=== PATIENT | female | born 1950 | race Caucasian/White ===

== ENCOUNTER 2016-12-18 11:20 | Inpatient (IN) | payer OTHER, MEDICARE ==
[~2016-12-18] VITALS: Ht 157.5 cm; Wt 88.2 kg
[2016-12-18] VITALS (10 sets, daily range): BP systolic 139–197; BP diastolic 72–111; PULSE 68–81; TEMP 36.6–36.8; O2SAT 92–96; Ht 157.5 cm; Wt 88.2 kg
[2016-12-18] MEDS ORDERED: SODIUM CHLORIDE 0.9% 1000ML 1,000 ML IV SCH (14:20)
[2016-12-18] MEDS ORDERED: PROMETHAZINE HCL INJ 12.5 MG in SODIUM CHLORIDE 0.9% 50ML 50 ML IV PRN (14:30)
[2016-12-18] MEDS ORDERED: ONDANSETRON INJ 2 MG/ML 2 ML VIAL IV PRN (14:30)
[2016-12-18] MEDS ORDERED: LORAZEPAM 1 MG TAB PO PRN (14:30)
[2016-12-18] MEDS ORDERED: ACETAMINOPHEN 325 MG TAB PO PRN (14:30)
[2016-12-18] MEDS ORDERED: NALOXONE HCL 0.4 MG/1 ML VIAL/CARP IV PRN (14:30)
[2016-12-18] MEDS ORDERED: OXYCODONE/ACETAMINOPHEN 5-325 TAB PO PRN (14:30)
[2016-12-18] MEDS ORDERED: LORAZEPAM INJ 1 MG in SYRINGE 0 ML IV PRN (14:30)
[2016-12-18 15:07] LABS: BASO % 0.3 %; BASO ABS # 0.03 K/uL (0-0.2); COMPLETE YES; EOS % 2.9 %; HEMATOCRIT 37.7 % (37-47); IG% 0.4 %; LYMPH % 26.6 %; LYMPH ABS # 2.44 K/uL (1.2-3.4); MEAN CELL VOLUME 90.6 fL (80-100); MEAN CORPUSCULAR HEMOGLOBIN 29.8 pg (25-34); MEAN CORPUSCULAR HGB CONC 32.9 g/dl (32-36); MEAN PLATELET VOLUME 10.4 fL (7.4-10.4); MONO % 9.2 %; NEUT % 60.6 %; PLATELET COUNT 197 K/uL (130-400); RED BLOOD COUNT 4.16 M/uL (4.2-5.4); WHITE BLOOD COUNT 9.16 K/uL (4.8-10.8)
[2016-12-18] MEDS ORDERED: IV FLUIDS COMPLETED PRN (15:15)
[2016-12-18 15:58] LABS: BUN/CREATININE RATIO 16.6 (10-20); CREATININE 1.2 mg/dl (0.60-1.20)
--- NOTE | 2016-12-18 16:01 | DIAGNOSTIC IMAGING REPORT ---
ULTRASOUND BILATERAL LOWER EXTREMITY VENOUS CLINICAL HISTORY: Immobilized patient. COMPARISON STUDY: No priors. TECHNIQUE: Real-time, grayscale, and color Doppler sonography of the deep veins of the right and left lower extremity was performed from the inguinal crease to the calf. Compression and augmentation were utilized. FINDINGS: There is no sonographic evidence of deep venous thrombosis identified in the right or left lower extremity. The common femoral, superficial femoral, and popliteal veins are patent and normally compressible bilaterally. The greater saphenous vein and the profunda femoris vein at the junction with the common femoral vein are clear in both legs. The visualized calf veins are patent bilaterally. IMPRESSION: There is no sonographic evidence of deep venous thrombosis identified in the right or left lower extremity. Electronically signed by: Timothy Meng M.D. 12/18/2016 3:59 PM Dictated Date/Time: 12/18/2016 3:59 PM
--- NOTE | 2016-12-18 16:04 | DIAGNOSTIC IMAGING REPORT ---
CHEST 2 VIEWS ROUTINE CLINICAL HISTORY: preop COMPARISON STUDY: No previous studies for comparison. FINDINGS: Prior median sternotomy. Fibrotic placement. Lungs are clear. IMPRESSION: No acute process. Electronically signed by: Jasbir Adams M.D. 12/18/2016 4:02 PM Dictated Date/Time: 12/18/2016 3:58 PM
[2016-12-18] MEDS: MoRPHine SULFATE 1 MG/ML 50 ML PCA CASS IV PRN ×2 (16:47→22:59)
[2016-12-18 17:07] LABS: POTASSIUM 3.6 mmol/L (3.5-5.1)
[2016-12-18] MEDS ORDERED: APR/25 PO (21:30)
[2016-12-18] MEDS ORDERED: PRED-301 PO (21:34)
[2016-12-18] MEDS ORDERED: SIMV20TA2 PO (21:34)
[2016-12-18] MEDS ORDERED: DILT120C51 PO (21:34)
[2016-12-18] MEDS ORDERED: SERT-234 PO (21:34)
[2016-12-18] MEDS ORDERED: CRG25 PO (21:34)
[2016-12-18] MEDS ORDERED: BUPR150T7 PO (21:34)
[2016-12-18] MEDS ORDERED: GABA1CAP4 PO (21:34)
[2016-12-18] MEDS ORDERED: LSN20 PO (21:35)
[2016-12-18] MEDS ORDERED: SIMVASTATIN 20 MG TAB PO ONE (21:36)
[2016-12-18] MEDS ORDERED: CARVEDILOL 25 MG TAB PO ONE (21:36)
[2016-12-18] MEDS ORDERED: BuPROPion SR 150 MG TABCR PO ONE (21:36)
[2016-12-18] MEDS ORDERED: GABAPENTIN 300 MG CAP PO ONE (21:36)
--- NOTE | 2016-12-18 21:38 | Medical Consult ---
Consultation Date of Consultation: Dec 18, 2016 . Attending Physician: Delta Kruger M.D. . Reason for Consultation: medical management . History of Present Illness 66 YO female followed by Dr. Jackson for primary care. History of hypertension, adrenal insufficiency, and other problems noted below. History of intolerance to anesthesia, but patient does not know the specific agents that she does not tolerate well. Experiencing severe back pain due to HNP. Admitted to Ortho Service for further management. She has been feeling well expect for her low back pain. No fever. No chest pain, cough, SOB. No nausea, vomiting, diarrhea, melena, hematochezia. No urinary symptoms. No unusual bruising or bleeding. . Family History FATHER Myocardial infarction MOTHER Lung cancer Social History Smoking Status: Never Smoker Alcohol Use: none Allergies Coded Allergies: No Known Allergies (Unverified , 12/18/16) Current Inpatient Medications Reported Home Medications Medications Dose Route/Sig Max Daily Dose Days Date Category Lisinopril 20 Mg Tab 20 Mg PO DAILY 12/18/16 Reported Prednisone 5 Mg Tab 5 Mg PO DAILY 12/18/16 Reported Zocor (Simvastatin) 20 Mg Tab 20 Mg PO HS 12/18/16 Reported Cardizem Cd (Diltiazem Hcl Coated Beads) 120 Mg Cap 120 Mg PO DAILY 12/18/16 Reported Zoloft (Sertraline HCl) 100 Mg Tab 100 Mg PO DAILY 12/18/16 Reported Carvedilol 25 Mg Tab 25 Mg PO BID 12/18/16 Reported Wellbutrin Sr (Bupropion Hcl) 150 Mg Tab 150 Mg PO BID 12/18/16 Reported Gabapentin 300 Mg Cap 300 Mg PO TID 12/18/16 Reported Hydralazine HCl 25 Mg Tab 25 Mg PO BID 12/18/16 Reported Current Inpatient Medications Medications (Trade) Dose Ordered Sig/Rory Route Start Time Stop Time Status Last Admin Dose Admin Acetaminophen (Tylenol Tab) 650 mg Q6H PRN PO 12/18/16 14:30 01/17/17 14:29 Docusate Sodium 100 mg 100 mg BID PO 12/18/16 21:00 01/17/17 20:59 Dexamethasone Sodium Phosphate 8 mg/Syringe 2 ml @ 1 mls/min Q8 IV 12/18/16 22:00 12/19/16 14:01 Promethazine HCl/ Sodium Chloride (Phenergan Inj/ Nss 50ml) 50.5 ml @ 202 mls/hr Q6H PRN IV 12/18/16 14:30 01/17/17 14:29 Ondansetron HCl (Zofran Inj) 4 mg Q6H PRN IV 12/18/16 14:30 01/17/17 14:29 Lorazepam 1 mg 1 mg Q6H PRN PO 12/18/16 14:30 01/17/17 14:29 Lorazepam/Syringe (Ativan Inj/ Syringe) 0.5 ml @ 1 mls/min Q6H PRN IV 12/18/16 14:30 01/17/17 14:29 Oxycodone/ Acetaminophen (Percocet 5-325mg Tab) Moderate to Severe patrizia... Q4H PRN PO 12/18/16 14:30 01/01/17 14:29 Future Hold Naloxone HCl (Narcan Inj) 0.1 mg Q5M PRN IV 12/18/16 14:30 01/17/17 14:29 Morphine Sulfate 50 mg 50 mg PRN PRN IV 12/18/16 14:30 01/01/17 14:29 12/18/16 16:47 50 MG Sodium Chloride (Nss 1000ml) 1,000 ml @ 15 mls/hr Q24H IV 12/18/16 14:20 01/17/17 14:19 12/18/16 14:44 15 MLS/HR Miscellaneous (Iv Fluids Completed) 1 ea PRN PRN N/A 12/18/16 15:15 12/18/17 15:14 Review of Systems As noted above in HPI. . Physical Exam Date Time Temp Pulse Resp B/P Pulse Ox O2 Delivery O2 Flow Rate FiO2 12/18/16 21:05 36.7 77 16 189/81 93 Room Air 12/18/16 19:55 36.8 76 16 190/77 94 Room Air 12/18/16 19:00 36.8 68 16 165/86 92 Room Air 12/18/16 17:48 36.6 74 16 169/91 95 Room Air 12/18/16 16:07 36.7 79 18 197/78 96 Room Air 12/18/16 16:00 Room Air 12/18/16 13:20 92 Room Air 12/18/16 12:40 36.6 69 16 139/72 92 Room Air General Appearance: WD/WN, no apparent distress Head: normocephalic, atraumatic Eyes: normal inspection, PERRL, EOMI, sclerae normal ENT: normal ENT inspection, hearing grossly normal, pharynx normal Neck: supple, no adenopathy, thyroid normal, no JVD, trachea midline Respiratory/Chest: lungs clear, no respiratory distress, no accessory muscle use Cardiovascular: regular rate, rhythm, no edema, no gallop, no JVD, + systolic murmur (II/ sys murmur at base) Abdomen/GI: normal bowel sounds, non tender, soft, no organomegaly Extremities/Musculoskelatal: normal inspection, no calf tenderness, no pedal edema, + pertinent finding (TEDS and SCD's applied) 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: 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 (PERRL, EOMI), no motor/sensory deficits (motor testing grossly intact), alert, normal mood/affect, oriented x 3 Skin: normal color, warm/dry, no rash Lymphatic: no adenopathy Laboratory Results Last 24 Hours Test 12/18/16 14:50 White Blood Count 9.16 K/uL Red Blood Count 4.16 M/uL Hemoglobin 12.4 g/dL Hematocrit 37.7 % Mean Corpuscular Volume 90.6 fL Mean Corpuscular Hemoglobin 29.8 pg Mean Corpuscular Hemoglobin Concent 32.9 g/dl Platelet Count 197 K/uL Mean Platelet Volume 10.4 fL Neutrophils (%) (Auto) 60.6 % Lymphocytes (%) (Auto) 26.6 % Monocytes (%) (Auto) 9.2 % Eosinophils (%) (Auto) 2.9 % Basophils (%) (Auto) 0.3 % Neutrophils # (Auto) 5.54 K/uL Lymphocytes # (Auto) 2.44 K/uL Monocytes # (Auto) 0.84 K/uL Eosinophils # (Auto) 0.27 K/uL Basophils # (Auto) 0.03 K/uL RDW Standard Deviation 48.3 fL RDW Coefficient of Variation 14.7 % Immature Granulocyte % (Auto) 0.4 % Immature Granulocyte # (Auto) 0.04 K/uL Sodium Level 148 mmol/L Potassium Level 3.6 mmol/L Chloride Level 111 mmol/L Carbon Dioxide Level 27 mmol/L Anion Gap 10.0 mmol/L Blood Urea Nitrogen 20 mg/dl Creatinine 1.20 mg/dl Est Creatinine Clear Calc Drug Dose 47.6 ml/min Estimated GFR () 54.5 Estimated GFR (Non- 47.1 BUN/Creatinine Ratio 16.6 Random Glucose 93 mg/dl Calcium Level 9.0 mg/dl Total Bilirubin 0.2 mg/dl Aspartate Amino Transf (AST/SGOT) 16 U/L Alanine Aminotransferase (ALT/SGPT) 19 U/L Alkaline Phosphatase 55 U/L Total Protein 6.5 gm/dl Albumin 3.3 gm/dl Globulin 3.2 gm/dl Albumin/Globulin Ratio 1.0 Hepatitis C Antibody Screen NEG Assessment & Plan BACK PAIN Management per Ortho. HYPERTENSION Continue carvedilol, lisinopril, hydralazine. DYSLIPIDEMIA Continue simvastatin. ADRENAL INSUFFICIENCY On prednisone 5 mg daily. Apparently she was on high dose steroids for some time due to suspected inflammatory bowel disease. Has been unable to wean off prednisone. Continue prednisone 5 mg daily. Should have IV hydrocortisone preoperatively and immediately postoperatively. VTE PROPHYLAXIS Per Ortho protocol. Thank you for this consultation. We will follow the patient with you during their hospital stay. Dr. Mesa will be rounding over the weekend. You can reach a member of the [facility] Hospitalist Team 24/05 via pager @ [phone]. You can reach me via cell @ [phone]. .
[2016-12-18] MEDS: DOCUSATE SODIUM 100 MG CAP PO SCH (21:52)
[2016-12-18] MEDS: DEXAMETHASONE INJ 8 MG in SYRINGE 0 ML IV SCH (21:52)
[2016-12-19] VITALS (7 sets, daily range): BP systolic 140–193; BP diastolic 77–94; PULSE 78–91; TEMP 36.5–36.8; O2SAT 91–94
[2016-12-19] MEDS: DEXAMETHASONE INJ 8 MG in SYRINGE 0 ML IV SCH ×2 (06:14→12:56)
[2016-12-19] MEDS: MoRPHine SULFATE 1 MG/ML 50 ML PCA CASS IV PRN (06:51)
[2016-12-19] MEDS: DOCUSATE SODIUM 100 MG CAP PO SCH ×2 (08:03→21:56)
[2016-12-19] MEDS: SERTRALINE HCL 100 MG TAB PO SCH (08:04)
[2016-12-19] MEDS: BuPROPion SR 150 MG TABCR PO SCH ×2 (08:04→21:56)
[2016-12-19] MEDS: DILTIAZEM HCL 120 MG CAPCR PO SCH (08:05)
[2016-12-19] MEDS: CARVEDILOL 25 MG TAB PO SCH ×2 (08:05→21:56)
[2016-12-19] MEDS: GABAPENTIN 300 MG CAP PO SCH ×3 (08:05→21:57)
[2016-12-19] MEDS: LISINOPRIL 20 MG TAB PO SCH (08:05)
--- NOTE | 2016-12-19 10:36 | Anesthesiology Progress Note ---
Pre-OP Anesthesia Assessment Date of Note Dec 19, 2016. Review patient information reviewed, chart reviewed, labs reviewed, acceptable for surgery Notes 66yo female scheduled for L4 - L5 decompression, PSF. PMH is significant for obesity, HTN, aortic valve replacement (porcine), hyperlipidemia,, anxiety, depression. Pt reports occurrence of severe PONV yrs ago but subsequent surgeries without post op complications. 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 GA discussed. She expressed understanding and signed informed consent.
[2016-12-19 11:10] LABS: URINE APPEARANCE CLOUDY (CLEAR); URINE BILIRUBIN NEG (NEG); URINE COLOR YELLOW; URINE EPITHELIAL CELL AUTO >30 /lpf (0-5); URINE NITRITE NEG (NEG); URINE SPECIFIC GRAVITY 1.019 (1.000-1.030); UROBILINOGEN NEG (NEG)
[2016-12-19 11:20] LABS: MANUAL MICROSCOPIC REQUIRED? NO; REVIEW REQ? YES
[2016-12-19] MEDS ORDERED: KETOROLAC TROMETHAMINE 15 MG/ML VIAL IM PRN (12:15)
[2016-12-19] MEDS ORDERED: NALOXONE HCL 0.4 MG/1 ML VIAL/CARP IV PRN (12:15)
--- NOTE | 2016-12-19 12:27 | HISTORY & PHYSICAL EXAMINATION ---
DATE OF ADMISSION: 12/18/2016 HISTORY OF PRESENT ILLNESS: This is a 66-year-old female who presented to the office with severe left lower extremity radiculopathy that progressed. She has been having symptoms for months being treated as an outpatient but over the past week, her pain became intolerable, she was essentially bedridden. She came to the office in a wheelchair. She has predominant left lower extremity symptoms. Outside imaging demonstrated multilevel spondylosis of the lumbar spine with disc degeneration, osteophytes and spondylolisthesis that was mobile of L4 and L5. MRI showed multilevel degenerative change in the mid lumbar spine and spinal stenosis L4-L5 with spondylolisthesis and a large left L4-L5 disc herniation with extruded fragment tracking up the pedicle of L4. She was admitted for pain control. PAST MEDICAL HISTORY: Hypertension, porcine aortic valve replacement, currently on no anticoagulation, hyperlipidemia, anxiety, depression, obesity. SOCIAL HISTORY: The patient is a nonsmoker. 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 ALLERGIES: None. MEDICATIONS: Medication list was reviewed per the EMR. REVIEW OF SYSTEMS: The patient denies chest pain, shortness of breath with activity, dyspnea on exertion, abdominal pain or incontinence. PHYSICAL EXAMINATION: MUSCULOSKELETAL: The patient is comfortable lying supine, severe pain with attempted movement of the left leg. Positive straight leg raise on the left. Less pronounced on the right. She has sensory disturbance in L5 and L4 distribution on the left with weakness in dorsiflexion on the left. She has good strength, sensation in the right lower extremity. She has absent patellar reflex on the left. She has nontender hip range of motion with log roll. She has palpable distal pulses. HEART: She has a regular rate and rhythm. LUNGS: Clear to auscultation with no respiratory distress. ABDOMEN: Soft, nontender. X-rays and MRI reviewed as above. ASSESSMENT: The patient is admitted for pain control due to severe radiculopathy. Pending medical and cardiac clearance anticipate proceeding with lumbar decompression and fusion procedure addressing the herniations and stenosis, instability L4-L5 with possible inclusion of L3. The patient was agreeable.
[2016-12-19] MEDS: SODIUM CHLORIDE 0.9% 1000ML 1,000 ML IV SCH (12:55)
[2016-12-19] MEDS: HYDROmorphone HCL 0.5MG/ML 50 ML CASSETTE IV PRN ×3 (13:01→22:50)
[2016-12-19] MEDS: SIMVASTATIN 20 MG TAB PO SCH (21:57)
--- NOTE | 2016-12-19 22:12 | Progress Note ---
Internal Med Progress Note Date of Service: Dec 19, 2016. Provider Documentation: SUBJECTIVE: using Morphine GENERAL HELPER pump has ongoing back pain , worse with minimum movement no complain of chest pain or SOB OBJECTIVE: Vital Signs-as noted below Exam: General-no sign of distress Eyes-sclera non icteric ENT-nad Neck-no thyromegaly Lungs-CTA ,no wheeze or rales Heart-regular S1/S2 Abdomen-soft ,non tender Extremities-no lower ext edema Neuro-no focal deficit Lab data as noted below. ASSESSMENT & PLAN: INTRACTABLE BACK PAIN due to herniated disc in lumber spine Ortho following plan for spinal decompression surgery on Wednesday HYPERTENSION BP stable Continue carvedilol, lisinopril, hydralazine. VALVULAR HEART DISEASE : s/p Aortic valve replacement -porcine valve follows with Cardiology at [place] no evidence of vol overload or cardiac compromise pt denies of any SOB , PRYOR activity was limited recently due to severe back pain DYSLIPIDEMIA Continue simvastatin. ADRENAL INSUFFICIENCY On prednisone 5 mg daily. surgical risk : pt is at moderate to low risk for tahir and post operative cardiac complication - CHF /Afib arrhythmia 12 lead EKG shows T wave flattening on lateral leads no prior EKG to compare no cardiac symptom of chest pain /SOB Cxray no active cardiopulmonary disease patient can proceed for elective spinal decompression surgery ( moderate risk ) no further cardiac studied will reduce /optimize risk pt should be given AM dose of Coreg with sips of water in morning of surgery VTE PROPHYLAXIS Per Ortho protocol. DISPOSITION per Primary team Vital Signs: Date Time Temp Pulse Resp B/P Pulse Ox O2 Delivery O2 Flow Rate FiO2 12/20/16 19:14 36.8 78 18 173/83 92 Room Air 12/20/16 16:00 Room Air 12/20/16 15:10 36.6 84 16 156/89 91 Room Air 12/20/16 07:45 91 Room Air 12/20/16 07:40 36.6 77 16 115/63 94 Nasal Cannula 2.0 12/20/16 03:28 175/85 12/20/16 03:26 36.9 86 16 177/90 94 Nasal Cannula 2.0 12/19/16 23:35 Nasal Cannula 2.0 12/19/16 23:20 36.6 87 14 149/79 93 Nasal Cannula 2.0 12/19/16 20:00 36.8 89 16 164/79 94 Nasal Cannula 2.0 2/18/17 20:00 94 Nasal Cannula 2.0 Lab Results:
[2016-12-20] VITALS (8 sets, daily range): BP systolic 115–177; BP diastolic 63–90; PULSE 69–86; TEMP 36.6–36.9; O2SAT 91–94
[2016-12-20] MEDS: HYDROmorphone HCL 0.5MG/ML 50 ML CASSETTE IV PRN ×2 (06:54→16:55)
[2016-12-20] MEDS: LISINOPRIL 20 MG TAB PO SCH (07:47)
[2016-12-20] MEDS: BuPROPion SR 150 MG TABCR PO SCH ×2 (07:48→20:40)
[2016-12-20] MEDS: CARVEDILOL 25 MG TAB PO SCH ×2 (07:48→20:40)
[2016-12-20] MEDS: DILTIAZEM HCL 120 MG CAPCR PO SCH (07:48)
[2016-12-20] MEDS: DOCUSATE SODIUM 100 MG CAP PO SCH ×2 (07:48→20:40)
[2016-12-20] MEDS: GABAPENTIN 300 MG CAP PO SCH ×3 (07:48→20:40)
[2016-12-20] MEDS: SERTRALINE HCL 100 MG TAB PO SCH (07:49)
--- NOTE | 2016-12-20 11:14 | Orthopedic Progress Note ---
Orthopedic Progress Note Date of Service Dec 20, 2016. 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 Objective N/V intact, A&O x3, toes mobile Date Time Temp Pulse Resp B/P Pulse Ox O2 Delivery O2 Flow Rate FiO2 12/20/16 07:45 91 Room Air 12/20/16 07:40 36.6 77 16 115/63 94 Nasal Cannula 2.0 12/20/16 03:28 175/85 12/20/16 03:26 36.9 86 16 177/90 94 Nasal Cannula 2.0 12/19/16 23:35 Nasal Cannula 2.0 12/19/16 23:20 36.6 87 14 149/79 93 Nasal Cannula 2.0 12/19/16 20:00 36.8 89 16 164/79 94 Nasal Cannula 2.0 12/19/16 20:00 94 Nasal Cannula 2.0 12/19/16 15:13 36.8 90 18 145/86 93 Room Air 12/19/16 13:03 168/89 12/19/16 12:17 36.8 91 18 140/77 93 Room Air Assessment & Plan Assessment: severe pain when attempting to move. poor mobility, will give a dose of heparin SC today, OR planned tomorrow
[2016-12-20] MEDS: SODIUM CHLORIDE 0.9% 1000ML 1,000 ML IV SCH (11:53)
[2016-12-20] MEDS: HEPARIN SOD 5000 UNIT/0.5 ML CARP SQ SCH (17:31)
--- NOTE | 2016-12-20 20:03 | Progress Note ---
Internal Med Progress Note Date of Service: Dec 20, 2016. 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 ASSESSMENT & PLAN: INTRACTABLE BACK PAIN due to herniated disc in lumber spine Ortho following plan for spinal decompression surgery tomorrow HYPERTENSION BP stable Continue carvedilol, lisinopril, hydralazine. Coreg should be given with sips of water in AM prior to surgery VALVULAR HEART DISEASE : s/p Aortic valve replacement -porcine valve follows with Cardiology at [place] no evidence of vol overload or cardiac compromise pt denies of any SOB , PRYOR activity was limited recently due to severe back pain DYSLIPIDEMIA Continue simvastatin. ADRENAL INSUFFICIENCY On prednisone 5 mg daily. ordered for TSH and random cortisol level in AM PO Prednisone can be on hold when pt is on IV steroid tahir and post spinal surgery surgical risk : pt is at moderate to low risk for tahir and post operative cardiac complication - CHF /Afib arrhythmia 12 lead EKG shows T wave flattening on lateral leads no prior EKG to compare no cardiac symptom of chest pain /SOB Cxray no active cardiopulmonary disease patient can proceed for elective spinal decompression surgery ( moderate risk ) no further cardiac studied will reduce /optimize risk pt should be given AM dose of Coreg with sips of water in morning of surgery VTE PROPHYLAXIS Per Ortho protocol. DISPOSITION per Primary team Vital Signs: Date Time Temp Pulse Resp B/P Pulse Ox O2 Delivery O2 Flow Rate FiO2 12/20/16 19:14 36.8 78 18 173/83 92 Room Air 12/20/16 16:00 Room Air 12/20/16 15:10 36.6 84 16 156/89 91 Room Air 12/20/16 07:45 91 Room Air 12/20/16 07:40 36.6 77 16 115/63 94 Nasal Cannula 2.0 12/20/16 03:28 175/85 12/20/16 03:26 36.9 86 16 177/90 94 Nasal Cannula 2.0 12/19/16 23:35 Nasal Cannula 2.0 12/19/16 23:20 36.6 87 14 149/79 93 Nasal Cannula 2.0
[2016-12-20] MEDS: SIMVASTATIN 20 MG TAB PO SCH (20:40)
[2016-12-20 22:10] LABS: URINE APPEARANCE CLOUDY (CLEAR); URINE BILIRUBIN NEG (NEG); URINE COLOR YELLOW; URINE NITRITE POS (NEG); URINE SPECIFIC GRAVITY 1.019 (1.000-1.030); UROBILINOGEN NEG (NEG); ZZUR CULT IF INDIC CLEAN CATCH YES
[2016-12-20 22:19] LABS: MANUAL MICROSCOPIC REQUIRED? NO; REVIEW REQ? NO
[2016-12-21] VITALS (17 sets, daily range): BP systolic 120–201; BP diastolic 67–106; PULSE 67–83; TEMP 36.4–36.9; O2SAT 92–97
[2016-12-21] MEDS: CARVEDILOL 25 MG TAB PO SCH ×2 (04:43→23:29)
[2016-12-21] MEDS: HYDROmorphone HCL 0.5MG/ML 50 ML CASSETTE IV PRN ×4 (07:11→22:52)
[2016-12-21 07:25] LABS: HEMATOCRIT 38.2 % (37-47); MEAN CELL VOLUME 91.2 fL (80-100); MEAN CORPUSCULAR HEMOGLOBIN 29.6 pg (25-34); MEAN CORPUSCULAR HGB CONC 32.5 g/dl (32-36); MEAN PLATELET VOLUME 10.1 fL (7.4-10.4); PLATELET COUNT 209 K/uL (130-400); RED BLOOD COUNT 4.19 M/uL (4.2-5.4); WHITE BLOOD COUNT 13.33 K/uL (4.8-10.8)
[2016-12-21 08:06] LABS: BUN/CREATININE RATIO 26.6 (10-20); CREATININE 1.1 mg/dl (0.60-1.20)
[2016-12-21 08:17] LABS: THYROID STIMULATING HORMONE 0.414 uIu/ml (0.300-4.500)
[2016-12-21] MEDS: BuPROPion SR 150 MG TABCR PO SCH ×2 (09:49→21:34)
[2016-12-21] MEDS: DOCUSATE SODIUM 100 MG CAP PO SCH ×2 (09:49→21:34)
[2016-12-21] MEDS: SERTRALINE HCL 100 MG TAB PO SCH (09:50)
[2016-12-21] MEDS: LISINOPRIL 20 MG TAB PO SCH (09:50)
[2016-12-21] MEDS: HEPARIN SOD 5000 UNIT/0.5 ML CARP SQ SCH ×2 (09:50→21:38)
[2016-12-21] MEDS: GABAPENTIN 300 MG CAP PO SCH ×3 (09:51→21:35)
[2016-12-21] MEDS: DILTIAZEM HCL 120 MG CAPCR PO SCH (09:51)
[2016-12-21] MEDS ORDERED: NURSING VERBAL MED ORDER STA (11:51)
[2016-12-21] MEDS ORDERED: BUPIVACAINE/EPINEPHRINE 0.5% MPF 1:200,000 30 ML VIAL ONE (11:55)
[2016-12-21] MEDS ORDERED: THROMBIN FOR SOLN 20000 UNIT KIT ONE (11:55)
[2016-12-21] MEDS ORDERED: THROMBIN 5000 UNITS KIT ONE (11:56)
[2016-12-21] MEDS ORDERED: BACITRACIN 50000 UNIT VIAL ONE (11:56)
[2016-12-21] MEDS ORDERED: HEPARIN SOD (PORCINE) 1000 UNIT/ML 10 ML VIAL ONE (11:56)
[2016-12-21] MEDS ORDERED: HydrALAZINE HCL 20 MG/ML VIAL IV. SCH (12:00)
[2016-12-21] MEDS: SODIUM CHLORIDE 0.9% 1000ML 1,000 ML IV SCH (12:04)
[2016-12-21] MEDS ORDERED: LIDOCAINE HCL 2% 2 ML VIAL (20MG/ML) ONE (12:17)
[2016-12-21] MEDS ORDERED: MIDAZOLAM HCL 1 MG/ML 2ML VIAL ONE (12:17)
[2016-12-21] MEDS ORDERED: FENTANYL CITRATE INJ 50 MCG/1 ML 2 ML VIAL ONE (12:17)
[2016-12-21] MEDS ORDERED: ONDANSETRON INJ 2 MG/ML 2 ML VIAL ONE (12:17)
[2016-12-21] MEDS ORDERED: GLYCOPYRROLATE INJ 0.2 MG/ML VIAL ONE (12:17)
[2016-12-21] MEDS ORDERED: PROPOFOL IV EMULSION 10 MG/ML 20 ML VIAL IV ONE (12:17)
[2016-12-21] MEDS ORDERED: DEXAMETHASONE SOD INJ 4 MG/ML VIAL ONE (12:17)
[2016-12-21] MEDS ORDERED: NEOSTIGMINE METHYLSULFATE 5 MG/5 ML SYR ONE (12:17)
[2016-12-21] MEDS ORDERED: ROCURONIUM BROMIDE 10 MG/ML 5 ML VIAL ONE (12:17)
[2016-12-21] MEDS ORDERED: HYDROCORTISONE SOD SUCCINATE 100 MG/2 ML VIAL ONE ×2 (15:06→18:16)
[2016-12-21] MEDS ORDERED: HydrALAZINE HCL 20 MG/ML VIAL IV. PRN (15:15)
[2016-12-21] MEDS ORDERED: OXYC-57 PO (15:38)
--- NOTE | 2016-12-21 15:39 | Discharge Instructions ---
Discharge Instructions Admission Reason for Admission: Lower Back Pain Discharge Discharge Diagnosis / Problem: Lumbar Stenosis Discharge Goals Goal(s): Decrease discomfort, Improve function, Increase independence Activity Recommendations Activity Limitations: as noted below Lifting Limitations: no more than 5 pounds Exercise/Sports Limitations: until after follow-up appointment May Resume Sexual Activity: after follow-up appointment Shower/Bathe: may shower/bathe in 3 days . Instructions / Follow-Up Instructions / Follow-Up ACTIVITY RECOMMENDATIONS: SELF CARE INSTRUCTIONS AFTER THORACIC/LUMBAR FUSIONS 1. You may walk to your tolerance. It is good exercise for your legs and back. Expect some back and intermittent leg aches and pains. 2. You may perform "counter-top" level activities (make a sandwich, negra with a project, etc.). 3. No bending or lifting of more than 10 pounds or back twisting of any nature (roll like a log when turning in bed). 4. You may ride in a car for 20-30 minutes at a time. No driving until after your first visit with your doctor. 5. Frequent changes of position and restricting sitting to 30 minutes at a time will help limit the amount of back spasms and stiffness you may experience. 6. You may discontinue the use of ambulatory aids (cane, crutches, etc.) once your strength and confidence allow. 7. You may manager trading the shower and let water strike your incision when you arrive home at least once daily. Do not take a tub bath, sit in a hot tub or go into a swimming pool until after your first recheck in the office. SPECIAL CARE INSTRUCTIONS: VERY IMPORTANT TO READ AND REVIEW A. Your surgical incision has been closed with a cosmetic suture under the skin that will dissolve in about 6 weeks. In 14 days, you can use a pair of clean scissors and cut the suture that is left outside of the skin at the ends of your incision. 1. The small skin tapes can be removed 7 days after surgery if they have not fallen off by that point. 2. You may keep the wound open to air as much as possible to promote healing after post-op day number 5 unless told otherwise by your doctor. 3. If you think the wound looks like it is becoming infected (redness or worsening drainage) and/or you are experiencing fever, chill or worsening back pain and muscle spasms, contact the office so that we may evaluate you as soon as possible. B. Complications are uncommon, but please contact us if you have any signs or symptoms of: 1. wound infection (fever higher than 102.5 degrees F, redness, separation of wound, drainage, or increasing pain from the incision) 2. blood clots in legs (pain, swelling, redness and warmth in legs) 3. urinary tract infection (fever higher than 102.5 degrees F, burning upon urination or increased frequency of urination) 4. nerve problems (inability to walk on your toes or heels, numbness, loss of bowel or bladder control) 5. any other symptoms that concern you C. Please call the office at if you have any concerns or questions about your operation or recovery. D. No smoking! Smoking drastically decreases the chance of a solid fusion. E. Do not take any anti-inflammatory medications (Indocin, Advil, Motrin, Aspirin, Naprosyn, etc.) as these may inhibit the chance of a solid fusion. Tylenol is okay to take for pain. MANAGING PAIN AFTER SPINAL SURGERY 1. Narcotic medication is intended for short-term use and will be provided for surgical pain. Surgical pain usually lasts for a period of 4-6 weeks. Narcotic medication includes Percocet, Vicodin, Darvocet, Tylenol #3 or Lortab. 2. Longer-term pain is more appropriately treated with non-narcotic medication such as Tylenol ES. 3. Muscle spasm is not appropriately treated with narcotics. Muscle relaxers such as Soma, Flexeril or Skelaxin can be used along with Tylenol ES. 4. Remember that we all live with some "aches and pains". This is not unusual or uncommon after an injury or as we get older. a. Back pain is expected and may include muscle spasms for 4 to 6 weeks after surgery. The pain should gradually improve. If the pain worsens for no apparent reason, please contact the office. b. Intermittent leg pain may also be experienced and should not be concerned about unless it worsens for no apparent reason. If so, please contact the office. 5. We will provide appropriate medication within the normal guidelines of their prescribed use. We will also be very cautious and aware of potential abuse and extended duration of patients' medication needs. a. Pain medications are for your comfort and to assist with sleep and rest so that the tissue can heal. They are not provided in order to return to normal activity and should not be used through the day. To do so or worsening pain at night can result from ongoing tissue damage and development of tolerance to the prescribed medicine. 6. Please allow 2-3 days to process refills. Prescriptions will not be mailed but must be picked up at the office. FOLLOW UP VISIT: Keep your scheduled follow-up appointment. Any questions, please call the office at . Current Hospital Diet Patient's current hospital diet: Regular Diet Discharge Diet Recommended Diet: Regular Diet Pending Studies Studies pending at discharge: no Medical Emergencies . Who to Call and When: Medical Emergencies: If at any time you feel your situation is an emergency, please call 911 immediately. . Non-Emergent Contact Non-Emergency issues call your: Surgeon Call Non-Emergent contact if: temperature is above 101, your pain is not controlled, your pain is worsening, your pain is unusual for you, your pain is concerning you, wound has increased drainage, wound has increased redness, wound has increased pain, you have any medication questions . "Provider Documentation" section prepared by Cole Zavala. VTE Core Measure Inpt VTE Proph given/why not?: Nieves Dickerson
[2016-12-21] MEDS ORDERED: SCOPOLAMINE 1.5 MG TDSY TD ONE (15:56)
[2016-12-21] MEDS ORDERED: ATROPINE SULFATE 0.1 MG/ML 5ML SYR IV PRN (16:00)
[2016-12-21] MEDS ORDERED: FENTANYL CITRATE INJ 50 MCG/1 ML 2 ML VIAL IV PRN (16:00)
[2016-12-21] MEDS ORDERED: MoRPHine SULFATE 10 MG/ML CARP/VIAL IV PRN (16:00)
[2016-12-21] MEDS ORDERED: ONDANSETRON INJ 2 MG/ML 2 ML VIAL IV PRN ×2 (16:00→18:15)
[2016-12-21] MEDS ORDERED: EpHEDrine SULFATE INJ 50 MG/ML AMP IV PRN (16:00)
--- NOTE | 2016-12-21 16:17 | History & Physical Bridge Note ---
H&P Re-Evaluation Bridge Note: I have examined the patient, reviewed the History & Physical and in the interval since the performance of the History & Physical I have noted the following changes of clinical significance: No changes noted
[2016-12-21] MEDS ORDERED: CEFAZOLIN SOD 1 GM VIAL ONE (16:57)
[2016-12-21] MEDS ORDERED: HYDROmorphone INJ 2 MG/ML SYR/VIAL ONE (16:59)
[2016-12-21] MEDS ORDERED: PHENYLEPHRINE 100MCG/ML 5ML SYR ONE (17:06)
[2016-12-21] MEDS ORDERED: EpHEDrine SULFATE 50MG/5ML SYR ONE (17:41)
--- NOTE | 2016-12-21 18:09 | [facility] Post Operative Brief Note ---
Immediate Operative Summary Operative Date Dec 21, 2016. Pre-Operative Diagnosis Spinal stenosis L4-L5 with spondylolisthesis and a large left L4-L5 disc herniation with extruded fragment tracking up the pedicle of L4 Post-Operative Diagnosis Same as preoperative Procedure(s) Performed L4-L5 Decompression and Transforaminal Lumbar Interbody Fusion; Infuse versus Bone Marrow Aspirate; Allograft Surgeon Dr. Delta Kruger Surgical Garment Assembler Surgeon(s) TIESHA Catalan Estimated Blood Loss 250ml Findings dict Specimens None per surgeon
[2016-12-21] MEDS ORDERED: SODIUM CHLORIDE 0.9% 1000ML 1,000 ML IV SCH (18:13)
--- NOTE | 2016-12-21 18:14 | DIAGNOSTIC IMAGING REPORT ---
Lumbar spine LUMBAR SPINE 2 OR 3 VIEW CLINICAL HISTORY: L3-5 DECOMPRESSION/FUSION/INTERBODY TECHNIQUE: Image intensifier COMPARISON STUDY: None FINDINGS: Lumbar laminectomy and fusion. Disc spacer placement. IMPRESSION: Lumbar laminectomy and fusion Electronically signed by: Jasbir Adams M.D. 12/21/2016 6:13 PM Dictated Date/Time: 12/21/2016 6:12 PM
[2016-12-21] MEDS ORDERED: hydrOXYzine HCL 25 MG TAB PO PRN (18:15)
[2016-12-21] MEDS ORDERED: METOCLOPRAMIDE HCL INJ 5 MG/ML 2 ML VIAL IV PRN (18:15)
[2016-12-21] MEDS ORDERED: HYDROCORTISONE IV 100 MG in SYRINGE 0 ML IV SCH (18:15)
[2016-12-21] MEDS ORDERED: NALOXONE HCL 0.4 MG/1 ML VIAL/CARP IV PRN (18:15)
[2016-12-21] MEDS ORDERED: FAMOTIDINE 20 MG TAB PO PRN (18:15)
[2016-12-21] MEDS ORDERED: ACETAMINOPHEN IV 100 ML IV PRN (18:15)
[2016-12-21] MEDS ORDERED: PROMETHAZINE HCL INJ 12.5 MG in SODIUM CHLORIDE 0.9% 50ML 50 ML IV PRN (18:15)
[2016-12-21] MEDS ORDERED: LORAZEPAM INJ 0.5 MG in SYRINGE 0 ML IV PRN (18:15)
[2016-12-21] MEDS ORDERED: LORAZEPAM 0.5 MG TAB PO PRN (18:15)
[2016-12-21] MEDS ORDERED: SOD PHOSPHATE/SOD BIPHOSPHATE ENEMA 132 ML BTL PR PRN (18:15)
[2016-12-21] MEDS ORDERED: MAGNESIUM HYDROXIDE SUSP 30 ML UDC PO PRN (18:15)
[2016-12-21] MEDS ORDERED: ALUMINUM/MAGNESIUM SUSP 30 ML UDC PO PRN (18:15)
[2016-12-21] MEDS ORDERED: BISACODYL 10 MG SUPP PR PRN (18:15)
--- NOTE | 2016-12-21 18:55 | Anesthesiology Progress Note ---
Anesthesia Post Op Note Date & Time Dec 21, 2016 at 18:55 Vital Signs Pain Intensity: 2 Vital Signs Past 12 Hours Date Time Temp Pulse Resp B/P Pulse Ox O2 Delivery O2 Flow Rate FiO2 12/21/16 18:45 66 15 162/93 95 Nasal Cannula 4 12/21/16 18:35 74 15 158/92 96 Nasal Cannula 4 12/21/16 18:25 76 17 179/66 98 Mask 10 12/21/16 18:15 91 19 122/79 91 Mask 10 12/21/16 18:09 37.7 100 16 162/86 92 Mask 10 12/21/16 12:22 36.5 83 21 182/95 92 Nasal Cannula 2.0 12/21/16 11:39 71 188/104 Nasal Cannula 2.0 12/21/16 09:59 201/95 12/21/16 09:45 77 187/106 94 Nasal Cannula 2.0 12/21/16 09:43 Room Air 12/21/16 07:02 36.9 67 20 181/94 93 Room Air Notes Mental Status: alert / awake / arousable, participated in evaluation Pt Amnestic to Procedure: Yes Nausea / Vomiting: adequately controlled Pain: adequately controlled Airway Patency, RR, SpO2: stable & adequate BP & HR: stable & adequate Hydration State: stable & adequate Anesthetic Complications: no major complications apparent
[2016-12-21] MEDS: DOCUSATE SODIUM/SENNA 50/8.6MG TAB PO SCH (21:34)
[2016-12-21] MEDS: SIMVASTATIN 20 MG TAB PO SCH (21:34)
--- NOTE | 2016-12-21 22:37 | Progress Note ---
Internal Med Progress Note Date of Service: Dec 21, 2016. Provider Documentation: SUBJECTIVE: s/p spinal decompression surgery today remains stable post op no complain of chest pain , no SOB , no fever or chills, no cough OBJECTIVE: Vital Signs-as noted below Exam: General-no sign of distress Eyes-sclera non icteric ENT-nad Neck-no thyromegaly Lungs-CTA ,no wheeze or rales Heart-regular S1/S2 Abdomen-soft ,non tender Extremities-no lower ext edema Neuro-no focal deficit Lab data as noted below. ASSESSMENT & PLAN: INTRACTABLE BACK PAIN due to herniated disc in lumber spine Ortho following s/p spinal decompression surgery today HYPERTENSION BP stable Continue carvedilol, lisinopril, hydralazine. VALVULAR HEART DISEASE : s/p Aortic valve replacement -porcine valve follows with Cardiology at [place] no evidence of vol overload or cardiac compromise pt denies of any SOB , PRYOR activity was limited recently due to severe back pain DYSLIPIDEMIA Continue simvastatin. ADRENAL INSUFFICIENCY On prednisone 5 mg daily. TSH and random cortisol level -wnl VTE PROPHYLAXIS Per Ortho protocol. DISPOSITION per Primary team Vital Signs: Date Time Temp Pulse Resp B/P Pulse Ox O2 Delivery O2 Flow Rate FiO2 12/21/16 23:27 72 123/67 95 Room Air 1.0 12/21/16 22:15 36.8 74 16 131/73 97 Nasal Cannula 4.0 12/21/16 21:21 36.8 72 16 120/69 96 Nasal Cannula 4.0 12/21/16 20:16 36.6 71 16 138/71 96 Nasal Cannula 4.0 12/21/16 19:46 36.7 78 16 137/72 95 Nasal Cannula 4.0 12/21/16 19:15 95 Nasal Cannula 4.0 12/21/16 19:15 36.7 71 16 151/83 95 Nasal Cannula 4.0 12/21/16 19:15 95 Nasal Cannula 4.0 12/21/16 19:05 36.9 66 13 130/79 97 Nasal Cannula 4 12/21/16 18:55 73 15 176/90 96 Nasal Cannula 4 12/21/16 18:45 66 15 162/93 95 Nasal Cannula 4 12/21/16 18:35 74 15 158/92 96 Nasal Cannula 4 12/21/16 18:25 76 17 179/66 98 Mask 10 12/21/16 18:15 91 19 122/79 91 Mask 10 12/21/16 18:09 37.7 100 16 162/86 92 Mask 10 12/21/16 12:22 36.5 83 21 182/95 92 Nasal Cannula 2.0 12/21/16 11:39 71 188/104 Nasal Cannula 2.0 12/21/16 09:59 201/95 12/21/16 09:45 77 187/106 94 Nasal Cannula 2.0 12/21/16 09:43 Room Air 12/21/16 07:02 36.9 67 20 181/94 93 Room Air 12/21/16 06:03 179/92 12/21/16 04:40 185/100 12/21/16 04:20 185/96 12/21/16 03:01 36.6 74 16 178/98 93 Room Air 12/21/16 00:50 161/81 12/21/16 00:45 Room Air Lab Results: Results Past 24 Hours Test 12/21/16 06:53 Range/Units White Blood Count 13.33 4.8-10.8 K/uL Red Blood Count 4.19 4.2-5.4 M/uL Hemoglobin 12.4 12.0-16.0 g/dL Hematocrit 38.2 37-47 % Mean Corpuscular Volume 91.2 80-100 fL Mean Corpuscular Hemoglobin 29.6 25-34 pg Mean Corpuscular Hemoglobin Concent 32.5 32-36 g/dl RDW Standard Deviation 49.3 36.4-46.3 fL RDW Coefficient of Variation 14.8 11.5-14.5 % Platelet Count 209 130-400 K/uL Mean Platelet Volume 10.1 7.4-10.4 fL Sodium Level 144 136-145 mmol/L Potassium Level 4.0 3.5-5.1 mmol/L Chloride Level 107 98-107 mmol/L Carbon Dioxide Level 25 21-32 mmol/L Anion Gap 12.0 3-11 mmol/L Blood Urea Nitrogen 29 7-18 mg/dl Creatinine 1.10 0.60-1.20 mg/dl Est Creatinine Clear Calc Drug Dose 51.9 ml/min Estimated GFR () 60.6 Estimated GFR (Non- 52.3 BUN/Creatinine Ratio 26.6 10-20 Random Glucose 91 70-99 mg/dl Calcium Level 9.0 8.5-10.1 mg/dl Thyroid Stimulating Hormone (TSH) 0.414 0.300-4.500 uIu/ml Random Cortisol 1.76 mcg/dl
[2016-12-22] VITALS (8 sets, daily range): BP systolic 93–145; BP diastolic 55–74; PULSE 76–95; TEMP 36.6–37; O2SAT 83–94
[2016-12-22] MEDS: CEFAZOLIN IV 2,000 MG in DEXTROSE 5% 50ML 50 ML IV SCH ×2 (00:18→07:32)
[2016-12-22] MEDS ORDERED: DC PCA SCH (06:00)
[2016-12-22] MEDS ORDERED: HYDROmorphone INJ 0.5 MG/0.5 ML SYR IV PRN (06:01)
[2016-12-22 06:15] LABS: BASO % 0.1 %; BASO ABS # 0.01 K/uL (0-0.2); COMPLETE YES; EOS % 0.2 %; IG% 0.7 %; LYMPH % 25.1 %; MEAN CELL VOLUME 90.4 fL (80-100); MEAN CORPUSCULAR HEMOGLOBIN 29.6 pg (25-34); MEAN CORPUSCULAR HGB CONC 32.7 g/dl (32-36); NEUT % 64.9 %; PLATELET COUNT 217 K/uL (130-400); RED BLOOD COUNT 3.65 M/uL (4.2-5.4); WHITE BLOOD COUNT 10.74 K/uL (4.8-10.8)
[2016-12-22 06:44] LABS: BUN/CREATININE RATIO 21.9 (10-20); CALCIUM 8.6 mg/dl (8.5-10.1); CREATININE 1.2 mg/dl (0.60-1.20); POTASSIUM 4.1 mmol/L (3.5-5.1)
[2016-12-22] MEDS ORDERED: NURSING VERBAL MED ORDER ONE (07:15)
[2016-12-22] MEDS: GABAPENTIN 300 MG CAP PO SCH ×3 (09:04→21:17)
[2016-12-22] MEDS: LISINOPRIL 20 MG TAB PO SCH (09:04)
[2016-12-22] MEDS: DILTIAZEM HCL 120 MG CAPCR PO SCH (09:05)
[2016-12-22] MEDS: BuPROPion SR 150 MG TABCR PO SCH ×2 (09:05→21:17)
[2016-12-22] MEDS: SERTRALINE HCL 100 MG TAB PO SCH (09:05)
[2016-12-22] MEDS: DOCUSATE SODIUM 100 MG CAP PO SCH ×2 (09:05→21:17)
[2016-12-22] MEDS: OXYCODONE HCL IR 5 MG TAB (IMMEDIATE RELEASE) PO PRN ×2 (09:10→13:56)
[2016-12-22] MEDS: CARVEDILOL 25 MG TAB PO SCH ×2 (09:43→21:17)
[2016-12-22] MEDS: HEPARIN SOD 5000 UNIT/0.5 ML CARP SQ SCH ×2 (09:48→21:18)
--- NOTE | 2016-12-22 09:58 | Orthopedic Progress Note ---
Orthopedic Progress Note Date of Service Dec 22, 2016. Subjective Post OP Day: 1 Reports: feeling well, pain controlled w PO medications, Denies: SOB, calf pain , chest pain, complaints, light headedness, nausea / vomiting Additional Notes: Doing well, resolution of LLE pain noted, no numbness/tingling. Stable medically. Pain is well controlled. Objective calves soft nontender, N/V intact, capillary refill less than 2 sec., dressing C /D/I, A&O x3, toes mobile, hemovac drainage Date Time Temp Pulse Resp B/P Pulse Ox O2 Delivery O2 Flow Rate FiO2 12/22/16 09:03 83 121/74 12/22/16 07:04 36.6 85 17 105/57 93 Room Air 12/22/16 03:12 36.7 79 17 145/60 91 Room Air 12/21/16 23:55 Nasal Cannula 2.0 12/21/16 23:39 36.4 67 17 135/75 96 Nasal Cannula 2.0 12/21/16 23:27 72 123/67 95 Room Air 1.0 12/21/16 22:15 36.8 74 16 131/73 97 Nasal Cannula 4.0 12/21/16 21:21 36.8 72 16 120/69 96 Nasal Cannula 4.0 12/21/16 20:16 36.6 71 16 138/71 96 Nasal Cannula 4.0 12/21/16 19:46 36.7 78 16 137/72 95 Nasal Cannula 4.0 12/21/16 19:15 95 Nasal Cannula 4.0 12/21/16 19:15 36.7 71 16 151/83 95 Nasal Cannula 4.0 12/21/16 19:15 95 Nasal Cannula 4.0 12/21/16 19:05 36.9 66 13 130/79 97 Nasal Cannula 4 12/21/16 18:55 73 15 176/90 96 Nasal Cannula 4 12/21/16 18:45 66 15 162/93 95 Nasal Cannula 4 12/21/16 18:35 74 15 158/92 96 Nasal Cannula 4 12/21/16 18:25 76 17 179/66 98 Mask 10 12/21/16 18:15 91 19 122/79 91 Mask 10 12/21/16 18:09 37.7 100 16 162/86 92 Mask 10 12/21/16 12:22 36.5 83 21 182/95 92 Nasal Cannula 2.0 12/21/16 11:39 71 188/104 Nasal Cannula 2.0 12/21/16 09:59 201/95 Laboratory Results 24 Hours: Test 12/22/16 05:32 White Blood Count 10.74 K/uL Red Blood Count 3.65 M/uL Hemoglobin 10.8 g/dL Hematocrit 33.0 % Mean Corpuscular Volume 90.4 fL Mean Corpuscular Hemoglobin 29.6 pg Mean Corpuscular Hemoglobin Concent 32.7 g/dl Platelet Count 217 K/uL Mean Platelet Volume 10.0 fL Neutrophils (%) (Auto) 64.9 % Lymphocytes (%) (Auto) 25.1 % Monocytes (%) (Auto) 9.0 % Eosinophils (%) (Auto) 0.2 % Basophils (%) (Auto) 0.1 % Neutrophils # (Auto) 6.96 K/uL Lymphocytes # (Auto) 2.70 K/uL Monocytes # (Auto) 0.97 K/uL Eosinophils # (Auto) 0.02 K/uL Basophils # (Auto) 0.01 K/uL Assessment & Plan Assessment: s/p l4/5 decomp/fusion Plan: Pain control, PT, DVT/GI prophylaxis, disposition pending on progress
--- NOTE | 2016-12-22 10:19 | Anesthesiology Progress Note ---
Anesthesia Post Op Note Date & Time Dec 22, 2016 at 10:18 Vital Signs Pain Intensity: 5.0 Vital Signs Past 12 Hours Date Time Temp Pulse Resp B/P Pulse Ox O2 Delivery O2 Flow Rate FiO2 12/22/16 09:03 83 121/74 12/22/16 07:04 36.6 85 17 105/57 93 Room Air 12/22/16 03:12 36.7 79 17 145/60 91 Room Air 12/21/16 23:55 Nasal Cannula 2.0 12/21/16 23:39 36.4 67 17 135/75 96 Nasal Cannula 2.0 12/21/16 23:27 72 123/67 95 Room Air 1.0 Notes Mental Status: alert / awake / arousable, participated in evaluation Pt Amnestic to Procedure: Yes Nausea / Vomiting: adequately controlled Pain: adequately controlled Airway Patency, RR, SpO2: stable & adequate BP & HR: stable & adequate Hydration State: stable & adequate Anesthetic Complications: no major complications apparent
--- NOTE | 2016-12-22 19:00 | Progress Note ---
Subjective Date of Service: Dec 22, 2016. Subjective Pt evaluation today including: conversation w/ patient, conversation w/ family , physical exam, lab review, review of studies, review of inpatient medication list Saw/examined the patient in room 353 Doing well post-operatively +back pain leg pain improved, hip pain improved worked with therapy Review of Systems Constitutional: No chills, No fever Respiratory: No shortness of breath Cardiac: No chest pain Abdomen: No diarrhea, No nausea, No pain, No vomiting Musculoskeletal: + joint pain (back pain) Heme: No abnormal bleeding/bruising Medications Current Inpatient Medications Medications (Trade) Dose Ordered Sig/Rory Route Start Time Stop Time Status Last Admin Dose Admin Docusate Sodium (coLACE CAP) 100 mg BID PO 12/18/16 21:00 01/17/17 20:59 12/22/16 09:05 100 MG Miscellaneous (Iv Fluids Completed) 1 ea PRN PRN N/A 12/18/16 15:15 12/18/17 15:14 Bupropion HCl (Wellbutrin-Sr Tab) 150 mg BID PO 12/19/16 09:00 01/18/17 08:59 12/22/16 09:05 150 MG Carvedilol (Coreg Tab) 25 mg BID PO 12/19/16 09:00 01/18/17 08:59 12/22/16 09:43 25 MG Gabapentin (Neurontin Cap) 300 mg TID PO 12/19/16 09:00 01/18/17 08:59 12/22/16 13:54 300 MG Hydralazine HCl (Apresoline Tab) 25 mg BID PO 12/19/16 09:00 01/18/17 08:59 12/22/16 09:04 25 MG Simvastatin (Zocor Tab) 20 mg HS PO 12/19/16 21:00 01/18/17 20:59 12/21/16 21:34 20 MG Diltiazem HCl (Cardizem Cd Cap) 120 mg DAILY PO 12/19/16 09:00 01/18/17 08:59 12/22/16 09:05 120 MG Lisinopril (Zestril Tab) 20 mg DAILY PO 12/19/16 09:00 01/18/17 08:59 12/22/16 09:04 20 MG Prednisone (PredniSONE TAB) 5 mg DAILY PO 12/19/16 09:00 01/18/17 08:59 12/22/16 09:03 5 MG Sertraline HCl (Zoloft Tab) 100 mg DAILY PO 12/19/16 09:00 01/18/17 08:59 12/22/16 09:05 100 MG Ketorolac Tromethamine (Toradol Inj) 15 mg Q6H PRN IM 12/19/16 12:15 12/24/16 12:14 Heparin Sodium (Porcine) (Heparin Sq 5000 Unit/0.5ml) 5,000 unit Q12 SQ 12/20/16 18:00 01/19/17 17:59 12/22/16 09:48 5,000 UNIT Hydralazine HCl 10 mg 10 mg Q8 PRN IV. 12/21/16 15:15 01/20/17 15:14 Promethazine HCl/ Sodium Chloride (Phenergan Inj/ Nss 50ml) 50.5 ml @ 202 mls/hr Q6H PRN IV 12/21/16 18:15 01/20/17 18:14 Ondansetron HCl (Zofran Inj) 4 mg Q6H PRN IV 12/21/16 18:15 01/20/17 18:14 Metoclopramide HCl (Reglan Inj) 10 mg Q6H PRN IV 12/21/16 18:15 01/20/17 18:14 Lorazepam 0.5 mg 0.5 mg Q8H PRN PO 12/21/16 18:15 01/20/17 18:14 Lorazepam/Syringe (Ativan Inj/ Syringe) 0.25 ml @ 1 mls/min Q8H PRN IV 12/21/16 18:15 01/20/17 18:14 Polyethylene (Miralax Powder Packet) 17 gm Q6 PO 12/23/16 06:00 01/22/17 05:59 Bisacodyl (Dulcolax Supp) 10 mg DAILY PRN [place] 12/21/16 18:15 01/20/17 18:14 Magnesium Hydroxide (Milk Of Magnesia Susp) 30 ml DAILY PRN PO 12/21/16 18:15 01/20/17 18:14 Hydromorphone HCl (Dilaudid Inj) 0.5-1mg prn moder... Q3H PRN IV 12/22/16 06:01 01/05/17 06:00 Oxycodone HCl (Roxicodone Immediate Rel Tab) 5-10mg prn moderate to sev... Q4H PRN PO 12/22/16 06:00 01/05/17 05:59 12/22/16 13:56 10 MG Acetaminophen 1000 mg 1,000 mg Q8H PRN PO 12/21/16 18:15 01/20/17 18:14 Acetaminophen (Ofirmev Iv) 100 ml @ 400 mls/hr Q8H PRN IV 12/21/16 18:15 01/20/17 18:14 Naloxone HCl (Narcan Inj) 0.1 mg Q5M PRN IV 12/21/16 18:15 01/20/17 18:14 Senna/Docusate Sodium (Senokot S Tab) 2 tab HS PO 12/21/16 21:00 01/20/17 20:59 12/21/16 21:34 2 TAB Sodium Biphosphate/ Sodium Phosphate (Fleet Enema) 132 ml ONE PRN [place] 12/21/16 18:15 01/20/17 18:14 Hydroxyzine HCl (Vistaril Tab) 25 mg Q8H PRN PO 12/21/16 18:15 01/20/17 18:14 Al Hydroxide/Mg Hydroxide (Maalox Susp) 30 ml Q6H PRN PO 12/21/16 18:15 01/20/17 18:14 Famotidine (Pepcid Tab) 20 mg Q12 PRN PO 12/21/16 18:15 01/20/17 18:14 Objective Vital Signs Date Time Temp Pulse Resp B/P Pulse Ox O2 Delivery O2 Flow Rate FiO2 12/22/16 15:04 37.0 84 16 93/55 83 Room Air 12/22/16 10:29 37.0 95 20 104/67 94 Room Air 12/22/16 09:03 83 121/74 12/22/16 07:45 Room Air 12/22/16 07:04 36.6 85 17 105/57 93 Room Air 12/22/16 03:12 36.7 79 17 145/60 91 Room Air 12/21/16 23:55 Nasal Cannula 2.0 12/21/16 23:39 36.4 67 17 135/75 96 Nasal Cannula 2.0 12/21/16 23:27 72 123/67 95 Room Air 1.0 12/21/16 22:15 36.8 74 16 131/73 97 Nasal Cannula 4.0 12/21/16 21:21 36.8 72 16 120/69 96 Nasal Cannula 4.0 12/21/16 20:16 36.6 71 16 138/71 96 Nasal Cannula 4.0 12/21/16 19:46 36.7 78 16 137/72 95 Nasal Cannula 4.0 12/21/16 19:15 95 Nasal Cannula 4.0 12/21/16 19:15 36.7 71 16 151/83 95 Nasal Cannula 4.0 12/21/16 19:15 95 Nasal Cannula 4.0 12/21/16 19:05 36.9 66 13 130/79 97 Nasal Cannula 4 Physical Exam General Appearance: + obese Respiratory/Chest: lungs clear, normal breath sounds, no respiratory distress, no accessory muscle use Cardiovascular: regular rate, rhythm, no edema, no murmur Abdomen: normal bowel sounds, non tender, soft Extremities: + pertinent finding (decreased ROM of back due to pain) 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iatric: alert, normal mood/affect Laboratory Results Last 24 Hours Test 12/22/16 05:32 White Blood Count 10.74 K/uL Red Blood Count 3.65 M/uL Hemoglobin 10.8 g/dL Hematocrit 33.0 % Mean Corpuscular Volume 90.4 fL Mean Corpuscular Hemoglobin 29.6 pg Mean Corpuscular Hemoglobin Concent 32.7 g/dl Platelet Count 217 K/uL Mean Platelet Volume 10.0 fL Neutrophils (%) (Auto) 64.9 % Lymphocytes (%) (Auto) 25.1 % Monocytes (%) (Auto) 9.0 % Eosinophils (%) (Auto) 0.2 % Basophils (%) (Auto) 0.1 % Neutrophils # (Auto) 6.96 K/uL Lymphocytes # (Auto) 2.70 K/uL Monocytes # (Auto) 0.97 K/uL Eosinophils # (Auto) 0.02 K/uL Basophils # (Auto) 0.01 K/uL RDW Standard Deviation 48.7 fL RDW Coefficient of Variation 14.8 % Immature Granulocyte % (Auto) 0.7 % Immature Granulocyte # (Auto) 0.08 K/uL Sodium Level 145 mmol/L Potassium Level 4.1 mmol/L Chloride Level 108 mmol/L Carbon Dioxide Level 28 mmol/L Anion Gap 9.0 mmol/L Blood Urea Nitrogen 26 mg/dl Creatinine 1.20 mg/dl Est Creatinine Clear Calc Drug Dose 47.6 ml/min Estimated GFR () 54.5 Estimated GFR (Non- 47.1 BUN/Creatinine Ratio 21.9 Random Glucose 98 mg/dl Calcium Level 8.6 mg/dl Assessment and Plan INTRACTABLE BACK PAIN s/p decompression/fusion of L4-L5 doing well with PT/OT pain control as per ortho SCDs and DVT ppx as per ortho HYPERTENSION BP stable Continue carvedilol, lisinopril, hydralazine. VALVULAR HEART DISEASE : s/p Aortic valve replacement -porcine valve follows with Cardiology at [place] no evidence of vol overload or cardiac compromise pt denies of any SOB , PRYOR activity was limited recently due to severe back pain DYSLIPIDEMIA Continue simvastatin. ADRENAL INSUFFICIENCY On prednisone 5 mg daily. TSH and random cortisol level -wnl VTE PROPHYLAXIS Per Ortho protocol. DISPOSITION per Primary team
[2016-12-22] MEDS: DOCUSATE SODIUM/SENNA 50/8.6MG TAB PO SCH (21:17)
[2016-12-22] MEDS: SIMVASTATIN 20 MG TAB PO SCH (21:17)
[2016-12-23] MEDS: POLYETHYLENE (MIRALAX) 17 GM PACK PO SCH ×5 (05:33→23:57)
[2016-12-23 06:58] VITALS: BP 121/70; PULSE 66; TEMP 36.7; O2SAT 94
[2016-12-23 06:58] LABS: HEMATOCRIT 29.2 % (37-47); MEAN CORPUSCULAR HEMOGLOBIN 30.2 pg (25-34); MEAN CORPUSCULAR HGB CONC 33.2 g/dl (32-36); MEAN PLATELET VOLUME 9.8 fL (7.4-10.4); PLATELET COUNT 172 K/uL (130-400); RED BLOOD COUNT 3.21 M/uL (4.2-5.4); WHITE BLOOD COUNT 9.64 K/uL (4.8-10.8)
[2016-12-23 07:29] LABS: BUN/CREATININE RATIO 24.4 (10-20); CALCIUM 8.6 mg/dl (8.5-10.1); CREATININE 1.3 mg/dl (0.60-1.20); MAGNESIUM 2.2 mg/dl (1.8-2.4); POTASSIUM 3.8 mmol/L (3.5-5.1)
[2016-12-23] MEDS: DILTIAZEM HCL 120 MG CAPCR PO SCH (08:43)
[2016-12-23] MEDS: DOCUSATE SODIUM 100 MG CAP PO SCH ×2 (08:43→20:58)
[2016-12-23] MEDS: BuPROPion SR 150 MG TABCR PO SCH ×2 (08:44→20:59)
[2016-12-23] MEDS: SERTRALINE HCL 100 MG TAB PO SCH (08:44)
[2016-12-23] MEDS: LISINOPRIL 20 MG TAB PO SCH (08:44)
[2016-12-23] MEDS: GABAPENTIN 300 MG CAP PO SCH ×3 (08:44→20:58)
[2016-12-23] MEDS: CARVEDILOL 25 MG TAB PO SCH ×2 (08:44→20:58)
[2016-12-23] MEDS: HEPARIN SOD 5000 UNIT/0.5 ML CARP SQ SCH ×2 (08:48→20:58)
--- NOTE | 2016-12-23 09:25 | Orthopedic Progress Note ---
Orthopedic Progress Note Date of Service Dec 23, 2016. Subjective Post OP Day: 2 Reports: feeling well, pain controlled w PO medications, Denies: SOB, calf pain , chest pain, complaints, light headedness, nausea / vomiting, using RN PLASTICS Objective calves soft nontender, N/V intact, dressing C/D/I, A&O x3, hemovac drainage Date Time Temp Pulse Resp B/P Pulse Ox O2 Delivery O2 Flow Rate FiO2 12/23/16 08:18 Nasal Cannula 2.0 12/23/16 06:58 36.7 66 16 121/70 94 Room Air 12/23/16 00:23 Nasal Cannula 2.0 12/22/16 22:56 36.9 77 16 98/62 91 Nasal Cannula 2.0 12/22/16 21:15 85 117/69 12/22/16 19:04 36.8 76 16 138/71 90 Nasal Cannula 2.0 12/22/16 15:45 Nasal Cannula 2.0 12/22/16 15:04 37.0 84 16 93/55 83 Room Air 12/22/16 10:29 37.0 95 20 104/67 94 Room Air Laboratory Results 24 Hours: Test 12/23/16 06:34 Hematocrit 29.2 % Hemoglobin 9.7 g/dL Assessment & Plan Assessment: s/p l4/5 decomp/fusion Plan: Pain control, PT, DVT/GI prophylaxis, disposition pending on progress
[2016-12-23 11:36] VITALS: BP 113/66; PULSE 71; O2SAT 91
--- NOTE | 2016-12-23 14:53 | Progress Note ---
Subjective Date of Service: Dec 23, 2016. Subjective Pt evaluation today including: conversation w/ patient, physical exam, lab review, review of studies, review of inpatient medication list Saw/examined the patient in room 353 Doing well, pain is controlled with medications No other symptoms to note Review of Systems Constitutional: No chills, No fever, No weakness Respiratory: No shortness of breath Cardiac: No chest pain Abdomen: No diarrhea, No nausea, No pain, No vomiting Musculoskeletal: + joint pain (back pain) Medications Current Inpatient Medications Medications (Trade) Dose Ordered Sig/Rory Route Start Time Stop Time Status Last Admin Dose Admin Docusate Sodium (coLACE CAP) 100 mg BID PO 12/18/16 21:00 01/17/17 20:59 12/23/16 08:43 100 MG Miscellaneous (Iv Fluids Completed) 1 ea PRN PRN N/A 12/18/16 15:15 12/18/17 15:14 Bupropion HCl (Wellbutrin-Sr Tab) 150 mg BID PO 12/19/16 09:00 01/18/17 08:59 12/23/16 08:44 150 MG Carvedilol (Coreg Tab) 25 mg BID PO 12/19/16 09:00 01/18/17 08:59 12/23/16 08:44 25 MG Gabapentin (Neurontin Cap) 300 mg TID PO 12/19/16 09:00 01/18/17 08:59 12/23/16 12:59 300 MG Hydralazine HCl (Apresoline Tab) 25 mg BID PO 12/19/16 09:00 01/18/17 08:59 12/23/16 08:43 25 MG Simvastatin (Zocor Tab) 20 mg HS PO 12/19/16 21:00 01/18/17 20:59 12/22/16 21:17 20 MG Diltiazem HCl (Cardizem Cd Cap) 120 mg DAILY PO 12/19/16 09:00 01/18/17 08:59 12/23/16 08:43 120 MG Lisinopril (Zestril Tab) 20 mg DAILY PO 12/19/16 09:00 01/18/17 08:59 12/23/16 08:44 20 MG Prednisone (PredniSONE TAB) 5 mg DAILY PO 12/19/16 09:00 01/18/17 08:59 12/23/16 08:44 5 MG Sertraline HCl (Zoloft Tab) 100 mg DAILY PO 12/19/16 09:00 01/18/17 08:59 12/23/16 08:44 100 MG Ketorolac Tromethamine (Toradol Inj) 15 mg Q6H PRN IM 12/19/16 12:15 12/24/16 12:14 Heparin Sodium (Porcine) (Heparin Sq 5000 Unit/0.5ml) 5,000 unit Q12 SQ 12/20/16 18:00 01/19/17 17:59 12/23/16 08:48 5,000 UNIT Hydralazine HCl 10 mg 10 mg Q8 PRN IV. 12/21/16 15:15 01/20/17 15:14 Promethazine HCl/ Sodium Chloride (Phenergan Inj/ Nss 50ml) 50.5 ml @ 202 mls/hr Q6H PRN IV 12/21/16 18:15 01/20/17 18:14 Ondansetron HCl (Zofran Inj) 4 mg Q6H PRN IV 12/21/16 18:15 01/20/17 18:14 Metoclopramide HCl (Reglan Inj) 10 mg Q6H PRN IV 12/21/16 18:15 01/20/17 18:14 Lorazepam 0.5 mg 0.5 mg Q8H PRN PO 12/21/16 18:15 01/20/17 18:14 Lorazepam/Syringe (Ativan Inj/ Syringe) 0.25 ml @ 1 mls/min Q8H PRN IV 12/21/16 18:15 01/20/17 18:14 Polyethylene (Miralax Powder Packet) 17 gm Q6 PO 12/23/16 06:00 01/22/17 05:59 12/23/16 05:33 17 GM Bisacodyl (Dulcolax Supp) 10 mg DAILY PRN [place] 12/21/16 18:15 01/20/17 18:14 Magnesium Hydroxide (Milk Of Magnesia Susp) 30 ml DAILY PRN PO 12/21/16 18:15 01/20/17 18:14 Hydromorphone HCl (Dilaudid Inj) 0.5-1mg prn moder... Q3H PRN IV 12/22/16 06:01 01/05/17 06:00 Oxycodone HCl (Roxicodone Immediate Rel Tab) 5-10mg prn moderate to sev... Q4H PRN PO 12/22/16 06:00 01/05/17 05:59 12/22/16 13:56 10 MG Acetaminophen 1000 mg 1,000 mg Q8H PRN PO 12/21/16 18:15 01/20/17 18:14 Acetaminophen (Ofirmev Iv) 100 ml @ 400 mls/hr Q8H PRN IV 12/21/16 18:15 01/20/17 18:14 Naloxone HCl (Narcan Inj) 0.1 mg Q5M PRN IV 12/21/16 18:15 01/20/17 18:14 Senna/Docusate Sodium (Senokot S Tab) 2 tab HS PO 12/21/16 21:00 01/20/17 20:59 12/22/16 21:17 2 TAB Sodium Biphosphate/ Sodium Phosphate (Fleet Enema) 132 ml ONE PRN [place] 12/21/16 18:15 01/20/17 18:14 Hydroxyzine HCl (Vistaril Tab) 25 mg Q8H PRN PO 12/21/16 18:15 01/20/17 18:14 Al Hydroxide/Mg Hydroxide (Maalox Susp) 30 ml Q6H PRN PO 12/21/16 18:15 01/20/17 18:14 Famotidine (Pepcid Tab) 20 mg Q12 PRN PO 12/21/16 18:15 01/20/17 18:14 Cephalexin Monohydrate (Keflex Cap) 500 mg BID PO 12/23/16 21:00 12/28/16 20:59 Objective Vital Signs Date Time Temp Pulse Resp B/P Pulse Ox O2 Delivery O2 Flow Rate FiO2 12/23/16 11:36 71 16 113/66 91 Room Air 12/23/16 08:18 Nasal Cannula 2.0 12/23/16 06:58 36.7 66 16 121/70 94 Room Air 12/23/16 00:23 Nasal Cannula 2.0 12/22/16 22:56 36.9 77 16 98/62 91 Nasal Cannula 2.0 12/22/16 21:15 85 117/69 2/21/17 19:04 36.8 76 16 138/71 90 Nasal Cannula 2.0 12/22/16 15:45 Nasal Cannula 2.0 12/22/16 15:04 37.0 84 16 93/55 83 Room Air Physical Exam General Appearance: no apparent distress, + obese Respiratory/Chest: lungs clear, normal breath sounds, no respiratory distress, no accessory muscle use Cardiovascular: regular rate, rhythm, no edema, no murmur Abdomen: normal bowel sounds, non tender, soft Laboratory Results Last 24 Hours Test 12/23/16 06:34 White Blood Count 9.64 K/uL Red Blood Count 3.21 M/uL Hemoglobin 9.7 g/dL Hematocrit 29.2 % Mean Corpuscular Volume 91.0 fL Mean Corpuscular Hemoglobin 30.2 pg Mean Corpuscular Hemoglobin Concent 33.2 g/dl RDW Standard Deviation 49.7 fL RDW Coefficient of Variation 15.1 % Platelet Count 172 K/uL Mean Platelet Volume 9.8 fL Sodium Level 142 mmol/L Potassium Level 3.8 mmol/L Chloride Level 106 mmol/L Carbon Dioxide Level 27 mmol/L Anion Gap 9.0 mmol/L Blood Urea Nitrogen 32 mg/dl Creatinine 1.30 mg/dl Est Creatinine Clear Calc Drug Dose 43.9 ml/min Estimated GFR () 49.5 Estimated GFR (Non- 42.7 BUN/Creatinine Ratio 24.4 Random Glucose 115 mg/dl Calcium Level 8.6 mg/dl Magnesium Level 2.2 mg/dl Assessment and Plan INTRACTABLE BACK PAIN 12/23 POD #2 doing well, continue PT/OT discharge to rehab as per ortho 12/22 s/p decompression/fusion of L4-L5 doing well with PT/OT pain control as per ortho SCDs and DVT ppx as per ortho Expected Acute Blood Loss Anemia post-surgical, H/H drop still maintained hgb > 10 no need for intervention, just monitor H/H UTI, Klebsiella urine culture growing Klebsiella Might benefit from treating the patient Keflex 500mg BID x 5 days HYPERTENSION BP stable Continue carvedilol, lisinopril, hydralazine. VALVULAR HEART DISEASE : s/p Aortic valve replacement -porcine valve follows with Cardiology at [place] no evidence of vol overload or cardiac compromise pt denies of any SOB , PRYOR activity was limited recently due to severe back pain DYSLIPIDEMIA Continue simvastatin. ADRENAL INSUFFICIENCY On prednisone 5 mg daily. TSH and random cortisol level -wnl VTE PROPHYLAXIS Per Ortho protocol. DISPOSITION per Primary team
[2016-12-23 15:19] VITALS: BP 126/84; PULSE 67; TEMP 37; O2SAT 94
[2016-12-23] MEDS: OXYCODONE HCL IR 5 MG TAB (IMMEDIATE RELEASE) PO PRN (20:16)
[2016-12-23 20:51] VITALS: BP 112/76; PULSE 67
[2016-12-23] MEDS: SIMVASTATIN 20 MG TAB PO SCH (20:58)
[2016-12-23] MEDS: CEPHALEXIN MONOHYDRATE 500 MG CAP PO SCH (20:58)
[2016-12-23] MEDS: DOCUSATE SODIUM/SENNA 50/8.6MG TAB PO SCH (20:58)
[2016-12-23 22:58] VITALS: BP 96/61; PULSE 69; TEMP 37.2; O2SAT 91
[2016-12-24] MEDS: POLYETHYLENE (MIRALAX) 17 GM PACK PO SCH (05:44)
[2016-12-24 07:20] LABS: HEMATOCRIT 28.7 % (37-47); MEAN CELL VOLUME 90.8 fL (80-100); MEAN CORPUSCULAR HEMOGLOBIN 29.1 pg (25-34); MEAN CORPUSCULAR HGB CONC 32.1 g/dl (32-36); MEAN PLATELET VOLUME 10.4 fL (7.4-10.4); PLATELET COUNT 187 K/uL (130-400); RED BLOOD COUNT 3.16 M/uL (4.2-5.4); WHITE BLOOD COUNT 9.77 K/uL (4.8-10.8)
[2016-12-24 07:52] LABS: BUN/CREATININE RATIO 23.9 (10-20); CALCIUM 8.6 mg/dl (8.5-10.1); CREATININE 1.2 mg/dl (0.60-1.20); POTASSIUM 3.8 mmol/L (3.5-5.1)
[2016-12-24 07:56] VITALS: BP 115/73; PULSE 58; TEMP 36.8; O2SAT 96
--- NOTE | 2016-12-24 08:20 | OPERATIVE REPORT ---
DATE OF OPERATION: 12/24/2016 PREOPERATIVE DIAGNOSES: 1. L4-L5 spinal stenosis. 2. L4-L5 degenerative spondylolisthesis. 3. L4-L5 disc herniation. POSTOPERATIVE DIAGNOSIS: Same. PROCEDURES: 1. L4 laminectomy with L4-L5 discectomy. 2. Nonsegmental pedicle screw instrumentation -- bilateral L4 and L5 with K2M [place] pedicle screws. 3. Posterior lateral fusion L4-L5 -- bilateral with Infuse BMP on a collagen sponge, tricalcium phosphate, local bone, bone putty, bone marrow aspirate. 4. Left L4-L5 transforaminal lumbar interbody fusion with K2M titanium interbody spacer, local bone and bone putty. 5. Right iliac crest bone marrow aspiration stem cell concentrations with Arteriocyte, application of bone graft. SURGEON: Dr. Kruger. HOOP ROLLS OPERATOR: Cole Zavala PA-C. Please note he participated in all portions of the procedure and was critical for performance of procedure, participated in positioning, prepping, draping, retraction and wound closure. ANESTHESIA: General endotracheal anesthesia. COMPLICATIONS: None. ESTIMATED BLOOD LOSS: Per anesthesia record. OPERATION AND FINDINGS: PROCEDURE: After identification of patient and operative level, she was brought to the OR where she underwent induction of general anesthesia. She was then positioned prone on [place] OR table. All bony prominences were well padded. Care was taken to avoid pressure on the periorbital area. Lumbosacral area was sterilely prepped and draped in usual fashion. Antibiotics were administered. Time-out was performed. Level was confirmed and skin incision was made from spinous process of L3-L5. Posterior exposure was accomplished. Gelpi retractors were placed. Level was confirmed and marked and L4 laminectomy was done. There were markedly degenerated facets. I removed much of the facets with an osteotome and Kerrisons, completed decompression and identified the dural tube was decompressed. I palpated nerve roots were decompressed at L4-L5 bilaterally. There was a large extruded disc fragment next to the pedicle of L4 above the disc space so I removed all the disc material and palpated nerves were free of compression. I then did a complete discectomy at L4-5 and prepared the disc space with eduardo and curettes back to bleeding bony endplates. I inserted a titanium mesh interbody spacer, local bone and bone putty to restore disc height. It was stable following insertion. I placed pedicle screws bilaterally at L4 and L5 with K2M [place] pedicle screws. I confirmed screw length trajectory and position with fluoroscopy. I then decorticated transverse process of L4-L5 with high speed jaxson as well as facets. I aspirated bone marrow from the right iliac crest via separate stab incision with a Jamshidi needle and concentrated with stem cell concentration system. I applied bone graft then packed the lateral gutters with bone graft mixture as described above. I then irrigated, confirmed hemostasis and closed over CORDELL drain. All sponge and needle counts were correct at the end of the case. I attest to the content of the Intraoperative Record and any orders documented therein. Any exceptio ns are noted below.
[2016-12-24] MEDS: DOCUSATE SODIUM 100 MG CAP PO SCH ×2 (09:25→21:00)
[2016-12-24] MEDS: BuPROPion SR 150 MG TABCR PO SCH ×2 (09:25→21:04)
[2016-12-24] MEDS: GABAPENTIN 300 MG CAP PO SCH ×3 (09:25→21:04)
[2016-12-24] MEDS: CEPHALEXIN MONOHYDRATE 500 MG CAP PO SCH ×2 (09:26→21:04)
[2016-12-24] MEDS: SERTRALINE HCL 100 MG TAB PO SCH (09:27)
[2016-12-24 09:30] VITALS: BP 88/51; PULSE 62
[2016-12-24] MEDS: CARVEDILOL 25 MG TAB PO SCH ×2 (09:32→21:04)
[2016-12-24] MEDS: DILTIAZEM HCL 120 MG CAPCR PO SCH (09:32)
[2016-12-24] MEDS: LISINOPRIL 20 MG TAB PO SCH (09:33)
[2016-12-24] MEDS: HEPARIN SOD 5000 UNIT/0.5 ML CARP SQ SCH (09:39)
[2016-12-24] MEDS ORDERED: NURSING VERBAL MED ORDER ONE (09:45)
[2016-12-24 14:00] VITALS: BP 98/62; PULSE 64
--- NOTE | 2016-12-24 14:06 | Orthopedic Progress Note ---
Orthopedic Progress Note Date of Service Dec 24, 2016. Subjective Post OP Day: 3 Reports: feeling well, pain controlled w PO medications, Denies: SOB, calf pain , chest pain, complaints, light headedness, nausea / vomiting, using DIRECTOR SOFTWARE Objective calves soft nontender, N/V intact, dressing C/D/I, A&O x3, hemovac drainage Date Time Temp Pulse Resp B/P Pulse Ox O2 Delivery O2 Flow Rate FiO2 12/24/16 14:00 64 98/62 12/24/16 09:30 62 88/51 12/24/16 08:35 Room Air 12/24/16 07:56 36.8 58 20 115/73 96 Room Air 12/24/16 00:00 Room Air 12/23/16 22:58 37.2 69 16 96/61 91 Room Air 12/23/16 20:51 67 112/76 12/23/16 16:00 Room Air 12/23/16 15:19 37.0 67 16 126/84 94 Room Air Laboratory Results 24 Hours: Test 12/24/16 06:11 Hematocrit 28.7 % Hemoglobin 9.2 g/dL Assessment & Plan Assessment: s/p l4/5 decomp/fusion Plan: nursing concerned about possible blood in stool. medicine called. heparin SC held. patient denies hx of such, planning on rehab placement once medically stable
[2016-12-24 14:56] VITALS: BP 106/64; PULSE 73; TEMP 36.8; O2SAT 94
--- NOTE | 2016-12-24 15:21 | Progress Note ---
Subjective Date of Service: Dec 24, 2016. Subjective Pt evaluation today including: conversation w/ patient, physical exam, lab review, review of studies, review of inpatient medication list Saw/examined the patient in room 353 She is seated in a chair today Doing well, no complaints; pain controlled, good PO intake Review of Systems Constitutional: + weakness, No chills, No fever Respiratory: No cough, No shortness of breath, No sputum Cardiac: No chest pain Abdomen: No diarrhea, No nausea, No pain, No vomiting Musculoskeletal: + joint pain (pain controlled with meds) Medications Current Inpatient Medications Medications (Trade) Dose Ordered Sig/Rory Route Start Time Stop Time Status Last Admin Dose Admin Docusate Sodium (coLACE CAP) 100 mg BID PO 12/18/16 21:00 01/17/17 20:59 12/24/16 09:25 100 MG Miscellaneous (Iv Fluids Completed) 1 ea PRN PRN N/A 12/18/16 15:15 12/18/17 15:14 Bupropion HCl (Wellbutrin-Sr Tab) 150 mg BID PO 12/19/16 09:00 01/18/17 08:59 12/24/16 09:25 150 MG Carvedilol (Coreg Tab) 25 mg BID PO 12/19/16 09:00 01/18/17 08:59 12/23/16 20:58 25 MG Gabapentin (Neurontin Cap) 300 mg TID PO 12/19/16 09:00 01/18/17 08:59 12/24/16 09:25 300 MG Hydralazine HCl (Apresoline Tab) 25 mg BID PO 12/19/16 09:00 01/18/17 08:59 12/23/16 20:58 25 MG Simvastatin (Zocor Tab) 20 mg HS PO 12/19/16 21:00 01/18/17 20:59 12/23/16 20:58 20 MG Diltiazem HCl (Cardizem Cd Cap) 120 mg DAILY PO 12/19/16 09:00 01/18/17 08:59 12/23/16 08:43 120 MG Lisinopril (Zestril Tab) 20 mg DAILY PO 12/19/16 09:00 01/18/17 08:59 12/23/16 08:44 20 MG Prednisone (PredniSONE TAB) 5 mg DAILY PO 12/19/16 09:00 01/18/17 08:59 12/24/16 11:41 5 MG Sertraline HCl (Zoloft Tab) 100 mg DAILY PO 12/19/16 09:00 01/18/17 08:59 12/24/16 09:27 100 MG Hydralazine HCl 10 mg 10 mg Q8 PRN IV. 12/21/16 15:15 01/20/17 15:14 Promethazine HCl/ Sodium Chloride (Phenergan Inj/ Nss 50ml) 50.5 ml @ 202 mls/hr Q6H PRN IV 12/21/16 18:15 01/20/17 18:14 Ondansetron HCl (Zofran Inj) 4 mg Q6H PRN IV 12/21/16 18:15 01/20/17 18:14 Metoclopramide HCl (Reglan Inj) 10 mg Q6H PRN IV 12/21/16 18:15 01/20/17 18:14 Lorazepam 0.5 mg 0.5 mg Q8H PRN PO 12/21/16 18:15 01/20/17 18:14 Lorazepam/Syringe (Ativan Inj/ Syringe) 0.25 ml @ 1 mls/min Q8H PRN IV 12/21/16 18:15 01/20/17 18:14 Bisacodyl (Dulcolax Supp) 10 mg DAILY PRN DC 12/21/16 18:15 01/20/17 18:14 Magnesium Hydroxide (Milk Of Magnesia Susp) 30 ml DAILY PRN PO 12/21/16 18:15 01/20/17 18:14 Hydromorphone HCl (Dilaudid Inj) 0.5-1mg prn moder... Q3H PRN IV 12/22/16 06:01 01/05/17 06:00 Oxycodone HCl (Roxicodone Immediate Rel Tab) 5-10mg prn moderate to sev... Q4H PRN PO 12/22/16 06:00 01/05/17 05:59 12/23/16 20:16 5 MG Acetaminophen 1000 mg 1,000 mg Q8H PRN PO 12/21/16 18:15 01/20/17 18:14 Acetaminophen (Ofirmev Iv) 100 ml @ 400 mls/hr Q8H PRN IV 12/21/16 18:15 01/20/17 18:14 Naloxone HCl (Narcan Inj) 0.1 mg Q5M PRN IV 12/21/16 18:15 01/20/17 18:14 Senna/Docusate Sodium (Senokot S Tab) 2 tab HS PO 12/21/16 21:00 01/20/17 20:59 12/23/16 20:58 2 TAB Sodium Biphosphate/ Sodium Phosphate (Fleet Enema) 132 ml ONE PRN DC 12/21/16 18:15 01/20/17 18:14 Hydroxyzine HCl (Vistaril Tab) 25 mg Q8H PRN PO 12/21/16 18:15 01/20/17 18:14 Al Hydroxide/Mg Hydroxide (Maalox Susp) 30 ml Q6H PRN PO 12/21/16 18:15 01/20/17 18:14 Famotidine (Pepcid Tab) 20 mg Q12 PRN PO 12/21/16 18:15 01/20/17 18:14 Cephalexin Monohydrate 500 mg 500 mg BID PO 12/23/16 21:00 12/28/16 20:59 12/24/16 09:26 500 MG Sodium Chloride (Nss 1000ml) 1,000 ml @ 80 mls/hr [id number] IV 12/24/16 14:30 01/23/17 14:29 Objective Vital Signs Date Time Temp Pulse Resp B/P Pulse Ox O2 Delivery O2 Flow Rate FiO2 12/24/16 14:56 36.8 73 18 106/64 94 Room Air 12/24/16 14:00 64 98/62 12/24/16 09:30 62 88/51 12/24/16 08:35 Room Air 12/24/16 07:56 36.8 58 20 115/73 96 Room Air 12/24/16 00:00 Room Air 12/23/16 22:58 37.2 69 16 96/61 91 Room Air 12/23/16 20:51 67 112/76 12/23/16 16:00 Room Air Physical Exam General Appearance: no apparent distress Respiratory/Chest: chest non-tender, lungs clear, normal breath sounds, no respiratory distress, no accessory muscle use Cardiovascular: regular rate, rhythm, no edema, no murmur Abdomen: normal bowel sounds, non tender, soft Extremities: normal inspection, no pedal edema 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iatric: no motor/sensory deficits, alert, normal mood/affect Laboratory Results Last 24 Hours Test 12/24/16 06:11 12/24/16 14:46 White Blood Count 9.77 K/uL Red Blood Count 3.16 M/uL Hemoglobin 9.2 g/dL Hematocrit 28.7 % Mean Corpuscular Volume 90.8 fL Mean Corpuscular Hemoglobin 29.1 pg Mean Corpuscular Hemoglobin Concent 32.1 g/dl RDW Standard Deviation 49.0 fL RDW Coefficient of Variation 14.8 % Platelet Count 187 K/uL Mean Platelet Volume 10.4 fL Sodium Level 139 mmol/L Potassium Level 3.8 mmol/L Chloride Level 106 mmol/L Carbon Dioxide Level 25 mmol/L Anion Gap 8.0 mmol/L Blood Urea Nitrogen 29 mg/dl Creatinine 1.20 mg/dl Est Creatinine Clear Calc Drug Dose 47.6 ml/min Estimated GFR () 54.5 Estimated GFR (Non- 47.1 BUN/Creatinine Ratio 23.9 Random Glucose 117 mg/dl Calcium Level 8.6 mg/dl Lactic Acid Level 1.6 mmol/L Assessment and Plan INTRACTABLE BACK PAIN 12/24 POD #3 PT/OT, pain controlled as per orthopedics 12/23 POD #2 doing well, continue PT/OT discharge to rehab as per ortho 12/22 s/p decompression/fusion of L4-L5 doing well with PT/OT pain control as per ortho SCDs and DVT ppx as per ortho Hypotension likely related to volume loss will put in for 80mL/hr IVFs recheck H/H in AM Expected Acute Blood Loss Anemia post-surgical, H/H drop still maintained hgb > 10 no need for intervention, just monitor H/H UTI, Klebsiella urine culture growing Klebsiella Might benefit from treating the patient Keflex 500mg BID x 5 days HYPERTENSION BP stable Continue carvedilol, lisinopril, hydralazine. VALVULAR HEART DISEASE : s/p Aortic valve replacement -porcine valve follows with Cardiology at [place] no evidence of vol overload or cardiac compromise pt denies of any SOB , PRYOR activity was limited recently due to severe back pain DYSLIPIDEMIA Continue simvastatin. ADRENAL INSUFFICIENCY On prednisone 5 mg daily. TSH and random cortisol level -wnl VTE PROPHYLAXIS Per Ortho protocol. DISPOSITION per Primary team
[2016-12-24] MEDS: ACETAMINOPHEN 500 MG TAB PO PRN (15:51)
[2016-12-24] MEDS: SODIUM CHLORIDE 0.9% 1000ML 1,000 ML IV SCH (15:51)
[2016-12-24] MEDS: DOCUSATE SODIUM/SENNA 50/8.6MG TAB PO SCH (21:00)
[2016-12-24 21:01] VITALS: BP 124/75; PULSE 72
[2016-12-24] MEDS: SIMVASTATIN 20 MG TAB PO SCH (21:04)
[2016-12-24 23:05] VITALS: BP 110/65; PULSE 62; TEMP 36.8; O2SAT 95
[2016-12-25] MEDS: SODIUM CHLORIDE 0.9% 1000ML 1,000 ML IV SCH (04:15)
[2016-12-25 07:08] VITALS: BP 134/57; PULSE 75; TEMP 37; O2SAT 96
[2016-12-25 07:10] LABS: HEMATOCRIT 28.1 % (37-47); MEAN CELL VOLUME 91.8 fL (80-100); MEAN CORPUSCULAR HEMOGLOBIN 30.1 pg (25-34); MEAN CORPUSCULAR HGB CONC 32.7 g/dl (32-36); MEAN PLATELET VOLUME 10.4 fL (7.4-10.4); PLATELET COUNT 203 K/uL (130-400); RED BLOOD COUNT 3.06 M/uL (4.2-5.4); WHITE BLOOD COUNT 10.77 K/uL (4.8-10.8)
[2016-12-25 07:54] LABS: BUN/CREATININE RATIO 16.2 (10-20); CALCIUM 8.2 mg/dl (8.5-10.1); MAGNESIUM 2.1 mg/dl (1.8-2.4); POTASSIUM 3.7 mmol/L (3.5-5.1)
[2016-12-25] MEDS ORDERED: KFL500 PO (09:14)
[2016-12-25] MEDS: ACETAMINOPHEN 500 MG TAB PO PRN (10:50)
[2016-12-25] MEDS: CARVEDILOL 25 MG TAB PO SCH (10:51)
[2016-12-25] MEDS: GABAPENTIN 300 MG CAP PO SCH ×2 (10:52→17:56)
[2016-12-25] MEDS: CEPHALEXIN MONOHYDRATE 500 MG CAP PO SCH (10:52)
[2016-12-25] MEDS: BuPROPion SR 150 MG TABCR PO SCH (10:52)
[2016-12-25] MEDS: LISINOPRIL 20 MG TAB PO SCH (10:53)
[2016-12-25] MEDS: DILTIAZEM HCL 120 MG CAPCR PO SCH (10:53)
[2016-12-25] MEDS: DOCUSATE SODIUM 100 MG CAP PO SCH (10:53)
[2016-12-25] MEDS: SERTRALINE HCL 100 MG TAB PO SCH (10:54)
--- NOTE | 2016-12-25 14:15 | Progress Note ---
Subjective Date of Service: Dec 25, 2016. Subjective Pt evaluation today including: conversation w/ patient, conversation w/ family , physical exam, lab review, review of studies, review of inpatient medication list Saw/examined the patient in room 353 called stating she was confused Last night she developed some delirium and hallucinations, thinking there were robots in her room Since night time, she has been talking fast and drifting from one subject to another she is awake, alert, and oriented x 3, but again, talking about multiple topics Review of Systems Constitutional: No chills, No fever Respiratory: No shortness of breath Cardiac: No chest pain Abdomen: No diarrhea, No nausea, No pain, No vomiting Psychiatric: + problem reported (+hallucinations) Medications Current Inpatient Medications Medications (Trade) Dose Ordered Sig/Rory Route Start Time Stop Time Status Last Admin Dose Admin Docusate Sodium (coLACE CAP) 100 mg BID PO 12/18/16 21:00 01/17/17 20:59 12/24/16 09:25 100 MG Miscellaneous (Iv Fluids Completed) 1 ea PRN PRN N/A 12/18/16 15:15 12/18/17 15:14 Bupropion HCl (Wellbutrin-Sr Tab) 150 mg BID PO 12/19/16 09:00 01/18/17 08:59 12/25/16 10:52 150 MG Carvedilol (Coreg Tab) 25 mg BID PO 12/19/16 09:00 01/18/17 08:59 12/25/16 10:51 25 MG Gabapentin (Neurontin Cap) 300 mg TID PO 12/19/16 09:00 01/18/17 08:59 12/25/16 10:52 300 MG Hydralazine HCl (Apresoline Tab) 25 mg BID PO 12/19/16 09:00 01/18/17 08:59 Future Hold 12/23/16 20:58 25 MG Simvastatin (Zocor Tab) 20 mg HS PO 12/19/16 21:00 01/18/17 20:59 12/24/16 21:04 20 MG Diltiazem HCl (Cardizem Cd Cap) 120 mg DAILY PO 12/19/16 09:00 01/18/17 08:59 12/25/16 10:53 120 MG Lisinopril (Zestril Tab) 20 mg DAILY PO 12/19/16 09:00 01/18/17 08:59 12/25/16 10:53 20 MG Prednisone (PredniSONE TAB) 5 mg DAILY PO 12/19/16 09:00 01/18/17 08:59 12/25/16 10:53 5 MG Sertraline HCl (Zoloft Tab) 100 mg DAILY PO 12/19/16 09:00 01/18/17 08:59 12/25/16 10:54 100 MG Hydralazine HCl 10 mg 10 mg Q8 PRN IV. 12/21/16 15:15 01/20/17 15:14 Promethazine HCl/ Sodium Chloride (Phenergan Inj/ Nss 50ml) 50.5 ml @ 202 mls/hr Q6H PRN IV 12/21/16 18:15 01/20/17 18:14 Ondansetron HCl (Zofran Inj) 4 mg Q6H PRN IV 12/21/16 18:15 01/20/17 18:14 Metoclopramide HCl (Reglan Inj) 10 mg Q6H PRN IV 12/21/16 18:15 01/20/17 18:14 Lorazepam 0.5 mg 0.5 mg Q8H PRN PO 12/21/16 18:15 01/20/17 18:14 Lorazepam/Syringe (Ativan Inj/ Syringe) 0.25 ml @ 1 mls/min Q8H PRN IV 12/21/16 18:15 01/20/17 18:14 Bisacodyl (Dulcolax Supp) [address] 12/21/16 18:15 01/20/17 18:14 Magnesium Hydroxide (Milk Of Magnesia Susp) 30 ml DAILY PRN PO 12/21/16 18:15 01/20/17 18:14 Acetaminophen 1000 mg 1,000 mg Q8H PRN PO 12/21/16 18:15 01/20/17 18:14 12/25/16 10:50 1,000 MG Acetaminophen (Ofirmev Iv) 100 ml @ 400 mls/hr Q8H PRN IV 12/21/16 18:15 01/20/17 18:14 Naloxone HCl (Narcan Inj) 0.1 mg Q5M PRN IV 12/21/16 18:15 01/20/17 18:14 Senna/Docusate Sodium (Senokot S Tab) 2 tab HS PO 12/21/16 21:00 01/20/17 20:59 12/23/16 20:58 2 TAB Sodium Biphosphate/ Sodium Phosphate (Fleet Enema) [address] 12/21/16 18:15 01/20/17 18:14 Hydroxyzine HCl (Vistaril Tab) 25 mg Q8H PRN PO 12/21/16 18:15 01/20/17 18:14 Al Hydroxide/Mg Hydroxide (Maalox Susp) 30 ml Q6H PRN PO 12/21/16 18:15 01/20/17 18:14 Famotidine (Pepcid Tab) 20 mg Q12 PRN PO 12/21/16 18:15 01/20/17 18:14 Cephalexin Monohydrate 500 mg 500 mg BID PO 12/23/16 21:00 12/28/16 20:59 12/25/16 10:52 500 MG Sodium Chloride (Nss 1000ml) 1,000 ml @ 80 mls/hr [id number] IV 12/24/16 14:30 01/23/17 14:29 12/25/16 04:15 80 MLS/HR Objective Vital Signs Date Time Temp Pulse Resp B/P Pulse Ox O2 Delivery O2 Flow Rate FiO2 12/25/16 07:08 37.0 75 19 134/57 96 Room Air 12/25/16 00:00 Room Air 12/24/16 23:05 36.8 62 16 110/65 95 Room Air 12/24/16 21:01 72 124/75 12/24/16 15:30 Room Air 12/24/16 14:56 36.8 73 18 106/64 94 Room Air Physical Exam General Appearance: no apparent distress Respiratory/Chest: lungs clear, normal breath sounds, no respiratory distress, no accessory muscle use Cardiovascular: regular rate, rhythm, no edema, no murmur 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iatric: no motor/sensory deficits, alert, normal mood/affect, oriented x 3, + pertinent finding (she is awake, alert, oriented x 3, but is talking fast, is not staying on topic for long) Laboratory Results Last 24 Hours Test 12/24/16 14:46 12/25/16 06:44 12/25/16 12:40 Lactic Acid Level 1.6 mmol/L White Blood Count 10.77 K/uL Red Blood Count 3.06 M/uL Hemoglobin 9.2 g/dL Hematocrit 28.1 % Mean Corpuscular Volume 91.8 fL Mean Corpuscular Hemoglobin 30.1 pg Mean Corpuscular Hemoglobin Concent 32.7 g/dl RDW Standard Deviation 50.2 fL RDW Coefficient of Variation 14.8 % Platelet Count 203 K/uL Mean Platelet Volume 10.4 fL Sodium Level 141 mmol/L Potassium Level 3.7 mmol/L Chloride Level 107 mmol/L Carbon Dioxide Level 24 mmol/L Anion Gap 10.0 mmol/L Blood Urea Nitrogen 16 mg/dl Creatinine 1.00 mg/dl Est Creatinine Clear Calc Drug Dose 57.1 ml/min Estimated GFR () 68.0 Estimated GFR (Non- 58.7 BUN/Creatinine Ratio 16.2 Random Glucose 97 mg/dl Calcium Level 8.2 mg/dl Magnesium Level 2.1 mg/dl Stool Occult Blood NEGATIVE Assessment and Plan Post-Op Delirium patient seems to be talking fast and drifting from topic to topic possible ing last night, +visual hallucinations multifactorial: Post-op delirium, opioid use, steroid use, UTI as per , she states that the patient had similar episode with high dose steroid use in the past IV decadron was given tahir-operatively; also had bad effects to opioids in the past and was given PO roxicodone here Pt. would do well being discharged: plan is to discharge to rehab, continue therapy at rehab, stop opioids, back to 5mg of prednisone, continue Keflex for the total of five days check CBC in 2-3 days to recheck Hgb INTRACTABLE BACK PAIN 12/24 POD #3 PT/OT, pain controlled as per orthopedics 2 POD #2 doing well, continue PT/OT discharge to rehab as per ortho 12/22 s/p decompression/fusion of L4-L5 doing well with PT/OT pain control as per ortho SCDs and DVT ppx as per ortho Hypotension likely related to volume loss will put in for 80mL/hr IVFs recheck H/H in AM Expected Acute Blood Loss Anemia post-surgical, H/H drop still maintained hgb > 10 no need for intervention, just monitor H/H UTI, Klebsiella urine culture growing Klebsiella Might benefit from treating the patient Keflex 500mg BID x 5 days HYPERTENSION BP stable Continue carvedilol, lisinopril, hydralazine. VALVULAR HEART DISEASE : s/p Aortic valve replacement -porcine valve follows with Cardiology at [place] no evidence of vol overload or cardiac compromise pt denies of any SOB , PRYOR activity was limited recently due to severe back pain DYSLIPIDEMIA Continue simvastatin. ADRENAL INSUFFICIENCY On prednisone 5 mg daily. TSH and random cortisol level -wnl VTE PROPHYLAXIS Per Ortho protocol. DISPOSITION per Primary team
[2016-12-25 15:15] VITALS: BP 106/69; PULSE 73; TEMP 36.8; O2SAT 93
[2016-12-25 16:16] VITALS: BP 106/69; PULSE 73; TEMP 36.8; O2SAT 93
--- NOTE | 2017-01-04 22:56 | DISCHARGE SUMMARY ---
PRINCIPAL DIAGNOSES: Include L4-L5 spinal stenosis, degenerative spondylolisthesis, and disc herniation. POSTOPERATIVE DIAGNOSES: Same. PROCEDURES: L4 laminectomy with an L4-L5 discectomy, pedicle screw instrumentation L4-L5, posterolateral fusion L4-L5, L4-L5 transforaminal lumbar interbody fusion, right iliac crest bone marrow aspiration. SURGEON: Dr. Delta Kruger. RAILCAR BRAKE OPERATOR: Cole Zavala PA-C. HISTORY OF PRESENT ILLNESS: Please refer to EMR. HOSPITAL COURSE: On 12/29/2016, Ms. Mckeon was admitted to [facility] with the above diagnosis. She was taken to preoperative holding where she was identified, evaluated, and cleared for surgical procedure. She was transported to the operating room, introduced with general endotracheal anesthesia. Sterile conditions were set and she successfully underwent the above procedure without complication or issue. She was awakened in stable and satisfactory condition and transported to postoperative recovery. Vital signs and pain were monitored and managed effectively with no complications or issues. She was transported to the orthopedic floor for continued care. Throughout her stay, her vital signs, pain, and labs were monitored and managed by orthopedic spine and the medical team. She participated in physical therapy with noted progress. She did seem to suffer from some postop delirium that was managed through due to sundowning syndrome per medical team. Pain was controlled per Dr. Kruger. DVT and GI prophylactic measures were taken. She was evaluated by psychiatric social worker and indicated for continued rehab at a alf facility, which once medically cleared she was able to be discharged on 12/25/2016. On this date, she was discharged from [facility]. DISPOSITION: Home. DISPOSITION CONDITION: Stable. NOTED COMPLICATIONS: Postop delirium. DISCHARGE INSTRUCTIONS: Please refer to EMR.
== END 2016-12-25 19:10 | DRG 460 ==
LOC: INTOOBSV 12:15 → C.MSW 12:15 → OBSVTOIN 12-21 10:31
PROVIDERS: ADMIT Orthopaedic Surgery Orthopaedic Surgery of the Spine; ATTEND Orthopaedic Surgery Orthopaedic Surgery of the Spine
PROC: 0SG00J1 Fusion of Lumbar Vertebral Joint with Synthetic Substitute, Posterior Approach, Posterior Column, Open Approach (ICD-10-PCS; principal; 2016-12-24)
PROC: 0SB20ZZ Excision of Lumbar Vertebral Disc, Open Approach (ICD-10-PCS; principal; 2016-12-24)
PROC: 0SG0071 Fusion of Lumbar Vertebral Joint with Autologous Tissue Substitute, Posterior Approach, Posterior Column, Open Approach (ICD-10-PCS; principal; 2016-12-24)
PROC: 0SG00AJ Fusion of Lumbar Vertebral Joint with Interbody Fusion Device, Posterior Approach, Anterior Column, Open Approach (ICD-10-PCS; principal; 2016-12-24)
PROC: 3E0V0GB Introduction of Recombinant Bone Morphogenetic Protein into Bones, Open Approach (ICD-10-PCS; principal; 2016-12-24)
DX: M51.16 Intervertebral disc disorders with radiculopathy, lumbar region (principal); E27.40 Unspecified adrenocortical insufficiency; N39.0 Urinary tract infection, site not specified; F05 Delirium due to known physiological condition; B96.1 Klebsiella pneumoniae [K. pneumoniae] as the cause of diseases classified elsewhere; M48.06 Spinal stenosis, lumbar region; I10 Essential (primary) hypertension; Z95.2 Presence of prosthetic heart valve; E78.5 Hyperlipidemia, unspecified; F41.9 Anxiety disorder, unspecified; F32.9 Major depressive disorder, single episode, unspecified; E66.9 Obesity, unspecified; Z68.35 Body mass index [BMI] 35.0-35.9, adult; Z80.1 Family history of malignant neoplasm of trachea, bronchus and lung; Z82.49 Family history of ischemic heart disease and other diseases of the circulatory system